=== PATIENT | male | born 1980 | race Caucasian/White ===

== ENCOUNTER 2025-05-15 14:27 | Outpatient (AMB) | payer OTHER, SELFPAY ==
[2025-05-15 14:31] VITALS: BP 137/86; PULSE 84; RESP 20; O2SAT 97; BMI 31.2
--- NOTE | 2025-05-15 14:31 | A.OFFVIS_ITS ---
Vital Signs 05/15/25 14:31 Height 6 ft Weight 230 lb BMI 31.2 BP 137/86 Blood Pressure Location Lt brachial Position Sitting Respiration 20 Pulse 84 Pulse Source Pulse Oximeter Pulse Oximetry (%) 97 Oxygen Delivery Method Room Air Intake Visit Reasons: sacroiliitis Welfare Supervisor Required: No Allergies No Known Allergies Allergy (Verified 05/15/25 14:31) HPI Comments Details: Heath is very pleasant 45 years old gentleman, precinct police lieutenant, who presents to my office with complaints of lower back pain and pain radiating into bilateral lower extremities on the posterior surface of the bilateral lower extremities and sensation of tingling and burning going down to his bilateral lower legs and top of his feet. He reports that he was under care of Dr. Demetrice Douglas. He received MRI of the lumbar spine. MRI demonstrated Modic type 1 changes in the L5-S1 area. He was physically examined and they found that the patient has sacroiliitis symptoms. He went for sacroiliac joint steroid injection on the left CT scan-guided. He denies any pain relief even though this procedure was done with 80 mg methylprednisolone injection. He reports more severe pain with standing and walking. He also reports severe pain with flexing forward and picking up subject from the ground. He also reports severe pain with heavy lifting. He is unable to sleep normally because of his pain but he can do activities of daily living, he can take care of himself, he can not function normally. He is working full-time as a precinct police lieutenant, he is on workmen's comp now. In terms of tissue damage he describes his pain as pulsing and pounding, stabbing and lancinating, pinching and crushing, hot burning and searing, tingling and stinging, dull hurting heavy, tiring and exhausting, tight squeezing and tearing sensation. He had extensive physical therapy after the injury of 04/25/2024 which did not help his pain. A chiropractor tried to help his pain as with minimal effect. Massage therapy gave him mild improvement. He tried 10s unit and received minimal effect. Injections are as above. Denies past medical history healthy individual. Past surgical history significant for left ACL repair 1997. Right knee me diskectomy 2009. Right shoulder bone spur removal in 2015. Left biceps ligament repair in 2018. And C5-C6 fusion by Dr. Valadez in 2020. He denies smoking cigarettes admits drinking 2-3 beers a week admits drinking 2 cups of coffee a day and he denies recreational drugs. Review of Systems Const All systems reviewed & are unremarkable except as noted in HPI and below ENT Reports Normal hearing present Neuro Reports Normal hearing present, Denies Abnormal speech present, Denies confusion and Denies Sensory deficit (Neuro) Psych Denies confusion Physical Exam Vital Signs: Last Vital Signs Pulse 84 05/15/25 14:31 Resp 20 05/15/25 14:31 BP 137/86 05/15/25 14:31 Pulse Ox 97 05/15/25 14:31 Oxygen Delivery Method Room Air 05/15/25 14:31 BMI result Body Mass Index 31.2 Const General: no acute distress; No confusion Orientation/consciousness: patient oriented x3 and No confusion Eyes General: appearance normal, both eyes and all related structures Pupils: Equal, round and reactive pupils present EOM: EOMs intact bilaterally Neck Neck: Yes full ROM Chest Chest palpation & inspection: normal inspection of the chest Resp Effort & Inspection: normal respiratory effort, able to speak in complete sentences, normal respiratory pattern, no audible wheezes and no cough Cardio Jugular venous distension: no JVD GI Inspection: Yes normal to inspection Back/Spine/Pelvis Other: Flexing forward aggravates his pain. Loading test is equivocal. Joe test is positive on the left, Gaenslen test is positive on the left, yeoman's test is positive on the left, SLR is negative bilaterally. Lasegue test is negative bilaterally. Able to stand on bilateral tiptoes and bilateral heels without difficulty. Neuro General: patient oriented x3, gait normal and No confusion Cranial nerves: Yes CN's II-XII intact bilaterally, Yes Equal, round and reactive pupils present, Yes Normal hearing present and Yes Ability to bilat erally elevate shoulders present Speech: No Abnormal speech present Gait exam (Neuro): Normal gait present Motor exam (neuro): 5/5 motor strength present throughout Sensory Exam: No Sensory deficit (Neuro) Extrem General: No pedal edema Psych Speech and movement: Normal speech and movement present Affect: normal affect Attitude: cooperative Thought process: Normal thought process present Thought content: Normal thought content present Insight: Good insight present (Psych) Judgement: Good judgement present (Psych) Assessment & Plan Assessment & Plan (1) Vertebrogenic low back pain: Code(s): M54.51 - Vertebrogenic low back pain Category: Medical (2) Spondylosis of lumbar region without myelopathy or radiculopathy: Code(s): M47.816 - Spondylosis without myelopathy or radiculopathy, lumbar region Category: Medical (3) Chronic pain syndrome: Code(s): G89.4 - Chronic pain syndrome Category: Medical (4) Sacroiliitis: Code(s): M46.1 - Sacroiliitis, not elsewhere classified Category: Medical (5) Chronic left sacroiliac joint pain: Code(s): M53.3 - Sacrococcygeal disorders, not elsewhere classified; G89.29 - Other chronic pain Category: Medical Plan This patient showed me MRI on his telephone which demonstrated L5-S1 facet arthropathy, disc desiccation, Modic type changes. This MRI not immediately available to me we will send the MRI report request to Dr. Douglas's office. We also will request the sacroiliac joint injection report which according to the patient did not help him at all. On physical exam patient exhibits signs of sacroiliitis on the left. However it is hard to believe that sacroiliac joint pain on the left would be radiated !! Bilaterally!! Into the both anterior shins and both feet. Possibility exists that this radiation comes from the facet joints. I offered the patient to perform diagnostic medial branch block under minimal sedation. If this injection will not result in any improvement of his painful condition I would consider performance of diagnostic sacroiliac joint injection as well as performance of the basivertebral nerve radiofrequency ablation. L5-S1. Coding Level of Care Code New Pt Level 3 (05998) Diagnoses Vertebrogenic low back pain M54.51 Spondylosis of lumbar region without myelopathy or radiculopathy M47.816 Chronic pain syndrome G89.4 Sacroiliitis M46.1 Chronic left sacroiliac joint pain M53.3; G89.29
--- OUTSIDE RECORDS SUMMARY | 2025-05-15 16:15 | XMS_ITS | Encounter Summary ---
Author Organization [facility] Address [address] [place] [address] [place] [address] Phone Care Team Providers Care Hog Sticker Name Role Phone Unknown, Unknown Primary Care Provider Adair Deng MD Primary Care Provider [phone] Encounter Details Date Type Department Care Team (Late st Contact Info) Description 01/04/2018 Ancillary Orders [facility] - [address] [address] Ciro Noonan DO [address] [place] [address] Orthopedics & Sports Medicine, [place] [address] [email or web address] Left shoulder pain, unspecified chronicity Social History Tobacco Use Types Packs/Day Years Used Date Smoking Tobacco: Never Assessed Sex and Gender Information Value Date Recorded Sex Assigned at Male 02/04/2018 6:23 PM EDT Legal Sex Male 9:22 PM EDT Gender Identity Male 02/04/2018 6:23 PM EDT Sexual Orientation Straight 02/04/2018 6: 23 PM EDT documented as of this encounter Plan of Treatment Not on file documented as of this encounter Results * XR SHOULDER 2 VIEWS (LEFT) (01/08/2018 3:23 PM EDT) Narrative Juanita Darling - 01/08/2018 3:23 PM EDT This image report has been auto-finalized and has not been read by a Radiologist. Interpretation has been included in the provider encounter note for this date of service. us Ciroandre Noonan DO IMG XR UPPER EXTREMITY Flavia l Result documented in this encounter Visit Diagnoses Diagnosis Left shoulder pain, unspecified chronicity Left shoulder pain, unspecified chronicity documented in this encounter Additional Health Concerns Infection Onset Date Last Indicated Resolved Time CoV-Risk Comment:COVID-19 test pending 12/01/2019 12/01/2019 12/15/2019 1:23 AM EDT documented as of this encounter Care Teams Hog Sticker Relationship Specialty Start Date End Date Unknown, Unknown, MD PCP - General 11/21/17 06/27/23 Adair Delgado MD [address] [place] [id number] PCP - General Internal Medicine 06/28/23 documented as of this encounter Additional Source Comments The information contained in this document represents components of the legal health record. It is not the complete legal health record.[facility]
--- OUTSIDE RECORDS SUMMARY | 2025-05-15 16:15 | XMS_ITS | Encounter Summary ---
Author Organization [facility] Address [address] [place] [address] [place] [phone] Phone Care Team Providers Care Manager Retail Store Name Role Phone Unknown, Unknown Primary Care Provider Adair Deng MD Primary Care Provider [phone] Encounter Details Date Type Department Care Team (Late st Contact Info) Description 10/11/2018 Procedure Pass OR Admitting Dept - Virtual Department [address] [place] [address] Social History Tobacco Use Types Packs/Day Years Used Date Smoking Tobacco: Never Smokeless Tobacco: Never Alcohol Use Standard Drinks/Week Comments Yes 0 (1 standard drink = 0.6 oz pur e alcohol) a couple times a month Sex and Gender Information Value Date Recorded Sex Assigned at Male 02/04/2018 6:23 PM EDT Legal Sex Male 9:22 PM EDT Gender Identity Male 02/04/2018 6:23 PM EDT Sexual Orientation Straight 02/04/2018 6: 23 PM EDT documented as of this encounter Plan of Treatment Not on file documented as of this encounter Visit Diagnoses Not on filedocumented in this encounter Additional Health Concerns Infection Onset Date Last Indicated Resolved Time CoV-Risk Comment:COVID-19 test pending 12/01/2019 12/01/2019 12/15/2019 1:23 AM EDT documented as of this encounter Care Teams Manager Retail Store Relationship Specialty Start Date End Date Unknown, Unknown, PCP - General 11/21/17 06/27/23 Adair Delgado MD [address] [place] [id number] PCP - General Internal Medicine 06/28/23 documented as of this encounter Additional Source Comments The information contained in this document represents components of the legal health record. It is not the complete legal health record.[facility]
--- OUTSIDE RECORDS SUMMARY | 2025-05-15 16:15 | XMS_ITS | Encounter Summary ---
Author Organization [facility] Address [address] [place] [address] [place] [address] Phone Care Team Providers Care Scleroscope Tester Name Role Phone Unknown, Unknown Primary Care Provider Adair Deng MD Primary Care Provider [phone] Encounter Details Date Type Department Care Team (Late st Contact Info) Description 06/27/2018 Procedure Pass [facility], [address] [address] Social History Tobacco Use Types Packs/Day Years Used Date Smoking Tobacco: Never Smokeless Tobacco: Never Alcohol Use Standard Drinks/Week Comments Yes 0 (1 standard drink = 0.6 oz pur e alcohol) Sex and Gender Information Value Date Recorded [...] documented as of this encounter Care Teams Scleroscope Tester Relationship Specialty Start Date End Date Unknown, Unknown, PCP - General 11/21/17 06/27/23 Adair Delgado MD [address] [place] [id number] PCP - General Internal Medicine 06/28/23 documented as of this encounter Additional Source Comments The information contained in this document represents components of the legal health record. It is not the complete legal health record.[facility]
--- OUTSIDE RECORDS SUMMARY | 2025-05-15 16:15 | XMS_ITS | Encounter Summary ---
Author Organization [facility] Address [address] [facility] [address] [place] [address] Phone Care Team Providers Care Pizza [employer] Team Member Name Role Phone Unknown, Unknown Primary Care Provider Adair Deng MD Primary Care Provider [phone] Encounter Details Date Type Department Care Team (Late st Contact Info) Description 06/19/2023 Procedure Pass [address] [place] [address] Social History Tobacco Use Types Packs/Day Years Used Date Smoking Tobacco: Never Smokeless Tobacco: Never Alcohol Use Standard Drinks/Week Comments Yes 0 (1 standard drink = 0.6 oz pur e alcohol) a couple times a month Education Answer Date Recorded Are you interested in more education? Not on edil e 12/23/2022 Are you concerned about learning? Not on file 12/23/2022 No 12/23/2022 No 12/23/2022 Digital Access Answer Date Recorded No 01/20/2023 No 01/20/2023 Reliable internet access at home? Not on file 01/20/2023 Device with a working camera? Not on file Sex and Gender Information Value Date Recorded Sex Assigned at Male 02/04/2018 6:23 PM EDT Legal Sex Male 9:22 PM EDT Gender Identity Male 02/04/2018 6:23 PM EDT Sexual Orientation Straight 02/04/2018 6: 23 PM EDT documented as of this encounter Plan of Treatment Not on file documented as of this encounter Visit Diagnoses Not on filedocumented in this encounter Care Teams [employer] Team Member Relationship Specialty Start Date End Date Unknown, Unknown, MD PCP - General 11/21/17 06/27/23 Adair Delgado MD [address] [place] [id number] PCP - General Internal Medicine 06/28/23 documented as of this encounter Additional Source Comments The information contained in this document represents components of the legal health record. It is not the complete legal health record.[facility]
--- OUTSIDE RECORDS SUMMARY | 2025-05-15 16:15 | XMS_ITS | Clinical Summary ---
Author Organization [facility] Address [address] [place] [address] Phone Care Team Providers Care Dental Ceramist Name Role Phone Adair Delgado MD Primary Care Provider [phone] Allergies Active Allergy Reactions Criticality Noted Date Comments Azithromycin Nausea and/or Vomiting Low 10/04/2011 Medications valACYclovir (VALTREX) 1000 MG tablet Take 2,000 mg by mouth. Cold sore 02/03/2017 Active Active Problems Problem Noted Date Diagnosed Date Left shoulder pain 01/05/2018 Family History Medical History Relation Comments No Known Problems Brother No Known Problems Father No Known Problems Maternal Aunt No Known Problems Maternal Grandfather No Known Problems Maternal Grandmother No Known Problems Maternal Uncle No Known Problems Mother No Known Problems Paternal Aunt No Known Problems Paternal Grandfather No Known Problems Paternal Grandmother No Known Problems Paternal Uncle No Known Problems Sister Cancer Unspecified Heart disease Unspecified Infl. arthritis Unspecified Clotting disorder Neg Hx Collagen disease Neg Hx Depression Neg Hx Diabetes Neg Hx Dislocations Neg Hx Gout Neg Hx Osteoporosis Neg Hx Scoliosis Neg Hx Relation Status Comments Brother Father Maternal Aunt Maternal Grandfather Maternal Grandmother Maternal Uncle Mother Paternal Aunt Paternal Grandfather Paternal Grandmother Paternal Uncle Sister Unspecified Social History Tobacco Use Types Packs/Day Years [...] Orientation Straight 02/04/2018 6: 23 PM EDT Last Filed Vital Signs Vital Sign Reading Time Taken Comments Blood Pressure 118/64 10/11/2018 1:30 PM EST Pulse 90 12/01/2019 1:57 PM EDT Temperature 36.9 C (98.4 F) 12/01/2019 1:57 PM EDT Respiratory Rate 18 10/11/2018 1:30 PM EST Oxygen Saturation 98% 12/01/2019 1:57 PM EDT Inhaled Oxygen Concentration - - Weight 102.1 kg (225 lb) 12/01/2019 1:57 PM EDT Height 182.9 cm (6') 12/01/2019 1:57 PM EDT Body Mass Index 30.52 12/01/2019 1:57 PM EDT Plan of Treatment Health Maintenance Due Date Last Done Comments DEPRESSION SCREENING 1992 HEPATITIS C SCREENING 1998 HIV ONE-TIME SCREENING (18-6 5 YEARS) 1998 LIPID PANEL 08/29/2023 08/29/2018 INFLUENZA VACCINE (#1) 2025 COLOGUARD 2025 COLONOSCOPY 2025 COLORECTAL CANCER SCREENING 2025 FIT TEST 2025 FOBT 2025 SIGMOIDOSCOPY 2025 VIRTUAL COLONOSCOPY 2025 COVID-19 VACCINE (3 2024-2 6 season) 2025 10/15/2020, 09/10/2020 Adult Td,Tdap Booster 06/10/2032 06/10/2022 , 10/04/2011 SMOKING STATUS SCREENING (On ce After 26 Yrs) Completed 07/31/2023 HEPATITIS A VACCINES Aged Out No long er eligible based on patient's age to complete this topic HIB VACCINES Aged Out No longer eligi ble based on patient's age to complete this topic MENINGOCOCCAL VACCINES (ACWY) Aged Out No longer eligible based on patient's age to complete this topic MENINGOCOCCAL VACCINES (B) Aged Out N o longer eligible based on patient's age to complete this topic PNEUMOCOCCAL VACCINES (0-49 years) Aged Out No longer eligible b ased on patient's age to complete this topic Medical Devices Implanted Type Area Animal Caregiver Device Identifier Shelf Expiration Date Model / Serial / Lot [employer]more Suture 7x19.1mm Swivelock Tenodesis [id number] - [id number] Implanted:Qty: 1 on 10/11/2018 by Ciro Noonan DO at [facility] 09/27/2019 [id number] / / [id number] Insurance O [facility] Member Subscriber Plan / Payer (Ef fective 2017-Present) Name:Heath Khan Relation to Subscriber:Self Name:HEATH KHAN Payer ID:Not on file Type:HMO Address: [place] [id number] [facility] [address] [place], [place] [address] [facility] [address] [place], [place] [address] Advance Directives For more information, please contact: [phone] (9AM - 5PM [facility], Monday-Monday) * Full Code (Presumed) (Latest Code Status on File) Date Activated Date Inactivated Comments 10/11/2018 7:40 AM 10/11/2018 3:48 PM Care Teams Dental Ceramist Relationship Specialty Start Date End Date Adair Delgado MD [address] [place] [id number] PCP - General Internal Medicine 06/28/23 Additional Source Comments The information contained in this document represents components of the legal health record. It is not the complete legal health record.[facility]
--- OUTSIDE RECORDS SUMMARY | 2025-05-15 16:15 | XMS_ITS | Encounter Summary ---
Author Organization [facility] Address [address] [place] [address] [place] [address] Phone Care Team Providers Care Laborer Mine Name Role Phone Unknown, Unknown Primary Care Provider Adair Deng MD Primary Care Provider [phone] Encounter Details Date Type Department Care Team (Late st Contact Info) Description 01/04/2018 Ancillary Orders [facility] & Sports Medicine [address] [place] [address] Ciro Noonan DO [address] [place] [address] Orthopedics & Sports Medicine, [facility] [place] [address] [email or web address] Social History Tobacco Use Types Packs/Day Years [...] documented as of this encounter Care Teams Laborer Mine Relationship Specialty Start Date End Date Unknown, Unknown, PCP - General 11/21/17 06/27/23 Adair Delgado MD [address] [place] [id number] PCP - General Internal Medicine 06/28/23 documented as of this encounter Additional Source Comments The information contained in this document represents components of the legal health record. It is not the complete legal health record.[facility]
--- OUTSIDE RECORDS SUMMARY | 2025-05-15 16:15 | XMS_ITS | Encounter Summary ---
Author Organization [facility] Address [address] [place] [address] [place] [address] Phone Care Team Providers Care Metal Sprayer Machined Parts Name Role Phone Unknown, Unknown Primary Care Provider Adair Deng MD Primary Care Provider [phone] Encounter Details Date Type Department Care Team (Late st Contact Info) Description 07/11/2018 Prep for Surgery [facility] Orthopedics & Sports Medicine [address] [place] [address] Ciro Noonan DO [address] [place] [address] Orthopedics & Sports Medicine, [facility] [place] [address] [email or web address] Social History Tobacco Use Types Packs/Day Years [...] documented as of this encounter Care Teams Metal Sprayer Machined Parts Relationship Specialty Start Date End Date Unknown, Unknown, MD PCP - General 11/21/17 06/27/23 Adair Delgado MD [address] [place] [id number] PCP - General Internal Medicine 06/28/23 documented as of this encounter Additional Source Comments The information contained in this document represents components of the legal health record. It is not the complete legal health record.[facility]
--- OUTSIDE RECORDS SUMMARY | 2025-05-15 16:15 | XMS_ITS | Clinical Summary ---
Author Organization [facility] Address [address] [place] [address] Care Team Providers Care Commercial Technician Name Role Phone Roge Delgado MD Primary Care Provider [phone] Social History Tobacco Use Types Packs/Day Years Used Date Smoking Tobacco: Never Assessed Sex and Gender Information Value Date Recorded Sex Assigned at Not on file Gender Identity Not on file Sexual Orientation Not on file Job Start Date Occupation Industry Not on file Not on file Not on file Plan of Treatment Health Maintenance Due Date Last Done Comments Hepatitis B Vaccines (1 of 3 - 3-dose series) 1980 Hepatitis C Screening 1980 COVID-19 Vaccine (#1) 1980 Depression Screening 1992 Preventative Health Evaluation 1998 DTap / Tdap / Td (2 - Td or Tdap) 10/04/2021 012 Colon Cancer Screening (Colonoscopy) 2025 Influenza Vaccine (#1) 2025 Pneumococcal Vaccine Aged Out No long er eligible based on patient's age to complete this topic RSV Ped < 20 months Aged Out No longe r eligible based on patient's age to complete this topic Care Teams Commercial Technician Relationship Specialty Start Date End Date Roge Delgado MD PCP - General Photo Journalist 06/16/21
--- OUTSIDE RECORDS SUMMARY | 2025-05-15 16:15 | XMS_ITS | Clinical Summary ---
Author Organization [facility] [address] [facility] [address] Address [address] [place] [address] Phone Care Team Providers Care Cyber Security Systems Engineer Name Role Phone Adair Delgado MD Primary Care Provider [phone] Allergies Active Allergy Reactions Criticality Noted Date Comments Azithromycin Nausea Only Low 10/04/2011 nausea Medications valACYclovir (VALTREX) 1 gram tablet Take 1 Tablet by mouth daily. - Oral Active Active Problems Problem Noted Date Diagnosed Date Family history of heart disease 02/03/2025 Sacroiliitis, not elsewhere classified (CMS/[facility] V24) 08/30/2024 Assessment & Plan (08/30/2024 3:21 PM EST): Mr. Romero describes left-sided low back pain or the feeling like something is stuck since an incident at work in March. He has had a couple of occasions of tingling in the legs but overall says that the problem is in the left side of his low back. He had some physical therapy and chiropractic treatments without relief. He has pain with palpation over the left SI joint. Gaenslen's test and SI joint compression test were both positive. Joe's maneuver was more equivocal. We will start with x-rays and an MRI of the lumbar spine. If those are not revealing, we will consider a left SI joint injection. Chronic left-sided low back pain with bilateral sciatica 08/30/2024 Assessment & Plan (01/15/2025 1:40 PM EDT): Mr. Khan describes ongoing issues with low back pain on the left-hand side. He did not get any relief with his SI joint injection. Unfortunately he now also describes bilateral pain from just below the knee traveling down the lateral aspect of the lower leg and into the dorsum of each foot. I once again reviewed his MRI of the lumbar spine. There was nothing to explain L5 distribution symptoms and his discs all have maintained height. There is very mild desiccation of the L5-S1 disc. I told him that I was stuck and did not have an explanation for his pain. Let him know that I would review his films with Dr. Wilson and see if she had any other ideas. I told him I would be in touch after discussing with Dr. Wilson. Assessment & Plan (08/30/2024 3:19 PM EST): Mr. Khan describes about 5 months of left-sided low back pain since an incident on the job in March. He has had a couple of episodes of tingling in the legs but overall says really it is a left-sided low back problem. He has been to physical therapy and had chiropractic treatment without relief. NSAIDs do not help. I am going to order some x-rays of the lumbar spine and send him for an MRI and try and understand this better. He will follow-up with us afterwards. Herpes labialis 06/06/2024 Overview (06/06/2024): Last Assessment & Plan: Valtrex 2g bid x 1 d prn outbreaks. Cervical spondylosis with radiculopathy 09/17/19 22 Overview (06/06/2024): Last Assessment & Plan: Patient is s/p C5-6 artificial disc replacement 12/24/2020, he has been noticing left upper trapezius and top anterior chest tightness, similar to what he was experiencing prior to his C5-6 disc surgery. He has been getting mild numbness in the left first webspace/dorsal hand more so than first and second digits. He states he would rate the neck pain/muscle spasm 3-6/10, at times it will be a 0/10. He had gone to [facility] in the past, called them to set up appointments when the symptoms began, has had 1 visit so far. He is not experiencing any weakness, right arm symptoms. He had EMG/NCS study 09/22/2021 that did not show carpal tunnel syndrome. I reviewed his flexion-extension C-spine x-rays done this morning, C5-6 artificial disc is intact, disk spaces above and below this level do not appear to have loss of height. No instability noted. Official report pending. I reviewed the x-rays with the patient on the computer. Mr. Khan is experiencing symptoms similar to preop, if he does not see improvement with physical therapy, he will need an updated C-spine MRI to rule out any nerve root compression. If he has any worsening symptoms, I asked him to call the office. All questions answered. I will check official report for C-spine x-rays when available. Snoring 11/09/2019 Overview (06/06/2024): 09/2019 Home Sleep Study did not reveal sleep apnea or nocturnal hypoxia. Hypercholesteremia 10/22/2018 Chest pain 09/17/2018 Left shoulder pain 01/05/2018 Encounters Date Type Department Care Team Description 04/16/2025 [facility] [address] [id number] Merari Nieto MA 03/28/2025 [facility] [address] [id number] Merari Nieto MA 03/28/2025 [facility] [address] [phone] Merari Nieto MA from Last 3 Months Immunizations Name Administration Dates Next Due Moderna SARS-CoV-2 COVID-19, mRNA, LNP-S, preservative free 10/08/2020,09/10/2020 Td Tetanus diptheria (Tdvax) 7yo and older 06/10 Tdap Tetanus diptheria acell ular pertussis (Boostrix; Adacel) 7yo and older 10/04/2011 Surgical History Surgery Date Site/Laterality Comments KNEE SURGERY 1997 PROCEDURE: HISTORICAL KNEE SURGERY; COMMENT: Left ACL '98 Cristian David KNEE SURGERY 2012 PROCEDURE: HISTORICAL KNEE SURGERY; COMMENT: right meniscus repair SHOULDER SURGERY 07/2015 Right PROCEDURE: IN UNLISTED PROCEDURE SHOULDER; COMMENT: NEOS KNEE SURGERY 2010 Left PROCEDURE: HISTORICAL KNEE SURGERY; COMMENT: Meniscus SHOULDER SURGERY 2018 PROCEDURE: HISTORICAL SHOULDER SURGERY; COMMENT: left labral and biceps tendon NECK SURGERY 12/24/2020 PROCEDURE: HISTORICAL NECK SURGERY; COMMENT: C5-6 discectomy and artificial disc replacement, Dr. Wilson SPINE SURGERY 2020 VASECTOMY 2007 Medical History Medical History Date Comments Herpes labialis DX:Herpes labial is Osteoarthrosis, unspecified whether generalized or localized, lower leg DX:Osteoarthrosis, unspecified whether generalized or localized, lower leg; COMMENT: knee, right Torn ACL 2007 DX:Torn ACL; COM MENT: on the R, no surgery Hypercholesteremia 10/22/2018 DX:Hyperchole steremia Family History Medical History Relation Name Comments Breast cancer Aunt 3 materal aunt s over age 45 No Known Problems Daughter Early Father Dad Other: scd Father Dad Arthritis Maternal Grandmother Grandma D Breast cancer Maternal Grandmother Grandma D Hypertension Mother Mom Arthritis Mother's Sister 1 Rachele Cancer Mother's Sister 2 Darcei Cancer Mother's Sister 3 Mita Cancer Mother's Sister 4 Krystin Dementia Paternal Grandfather Grampa S Heart attack Paternal Grandfather Grampa S alive a t 90 Heart disease Paternal Grandfather Grampa S Dementia Paternal Grandmother Grandma S Other cancer Paternal Grandmother Grandma S skin Arthritis Sister Christine No Known Problems Son Relation Name Status Comments Aunt Daughter Alive Father Dad (Age 61) healthy, u nknown cause of . in sleep Maternal Grandfather Alive healthy Maternal Grandmother Grandma D breast ca Mother Mom Alive healthy Mother's Sister 1 Rachele Mother's Sister 2 Darcie Mother's Sister 3 Mita Mother's Sister 4 Krystin Paternal Grandfather Grampa S Alive heart d isease, quad bypass Paternal Grandmother Grandma S Alive breast lump removed Sister Christine Alive healthy Son Alive Social History Tobacco Use Types Packs/Day Years Used Date Smoking Tobacco: Never Smokeless Tobacco: Never Tobacco Cessation:Counseling Given: Not Answered Alcohol Use Standard Drinks/Week Comments Yes 3 (1 standard drink = 0.6 oz pur e alcohol) Housing Instability Answer Date Recorde d Are you worried that in the next 2 months you may not have stable housing? No 07/18/2024 Food Access & Nutrition Answer Date Rec orded Do you have access to a vari ety of food including fruits and vegetables? Yes 07/18/2024 Access to Healthcare Answer Date Record ed Within the last 3 months, ho w many times did you visit the emergency department for your medical care? 1 07/18/2024 Health Literacy Answer Date Recorded How often do you need to hav e someone help you when you read instructions, pamphlets, or other written material from your doctor or pharmacy? Never 07/18/2024 Caregiver: How often do you need to have someone help you when you read instructions, pamphlets, or other written material from your doctor or pharmacy? Not on file 07/18/2024 Financial Risk Answer Date Recorded How hard is it for you to pa y for the very basics like food, housing, medical care, and air conditioning / heating? Not very hard 07/18/2024 Transportation Answer Date Recorded Has the lack of transportati on kept you from meetings, work, or from getting things needed for daily living? No Has the lack of transportati on kept you from medical appointments or from getting medications? No 07/18/2024 Social Isolation Answer Date Recorded How often do you feel lonely or isolated from th ose around you? Never 07/18/2024 Food Risk Answer Date Recorded Within the past 12 months we worried whether our food would run out before we got money to buy more. Never true 07/18/2024 Within the past 12 months th e food we bought just didn't last and we didn't have money to get more. Never true 07/18/2024 Dependent Care Answer Date Recorded Do you need help finding or paying for care for your loved ones. For example, child nutrition manager or elderly care for an older adult? No 07/18/2024 Education Answer Date Recorded Do you think completing more education or training, like finishing a GED, going to college, or learning a trade, would be helpful for you? No 07/18/2024 Employment and Income Answer Date Recor ded During the last four weeks, have you been actively looking for work? No 07/18/2024 Living Situation Answer Date Recorded What is your living situation? 1 09/17/2023 Sex and Gender Information Value Date Recorded Sex Assigned at Male 08/30/2024 3:23 PM EST Legal Sex Male 5:50 AM EST Gender Identity Male 08/30/2024 3:23 PM EST Sexual Orientation Straight 08/30/2024 3: 23 PM EST Obstetrics History Last Filed Vital Signs Vital Sign Reading Time Taken Comments Blood Pressure 132/84 02/03/2025 3:34 PM EDT Pulse 66 02/03/2025 3:34 PM EDT Temperature 36.7 C (98.1 F) 07/18/2024 3:38 PM EST Respiratory Rate - - Oxygen Saturation - - Inhaled Oxygen Concentration - - Weight 106 kg (233 lb 9.6 oz) 02/03/2025 3:34 PM EDT Height 182.9 cm (6') 02/03/2025 3:34 PM EDT Body Mass Index 31.68 02/03/2025 3:34 PM EDT Plan of Treatment Upcoming Encounters Date Type Department Care Team (Late st Contact Info) Description 06/25/2025 1:00 PM EDT Office Visit [facility] [address] [facility] [address] [place] [phone] Vicki Marks MD [address] [place] [address] [place] [address] Health Maintenance Due Date Last Done Comments Colorectal Cancer Screening: Colonoscopy 08/06/2022 Social Influencers of Health Screening 07/18/2025 07/18/2024 Cholesterol Screening (Lipid Panel) 01/22/2030 01/22/2025, 08/23/2024, 08/29/2018 DTaP,Tdap,and Td Vaccines (3 - Td or Tdap) 06/10/2032 06/10/2022, 10/04/2011 RSV Immunization Adult Patients (1 - 1-dose 75+ series) 2055 COVID-19 Vaccine Discontinued 10/08/2020, 09/10/2020 Hepatitis C Screening Completed 08/23/2024 Depression Screening Completed 02/02/2025 HIB Vaccines Aged Out No longer eligi ble based on patient's age to complete this topic HIV Screening Discontinued HPV Vaccines Aged Out No longer eligi ble based on patient's age to complete this topic Hepatitis A Vaccines Aged Out No long er eligible based on patient's age to complete this topic Hepatitis B Vaccines Discontinued IPV Vaccines Aged Out No longer eligi ble based on patient's age to complete this topic Influenza Vaccine Discontinued MMR Vaccines Aged Out No longer eligi ble based on patient's age to complete this topic Meningococcal ACWY Vaccine Aged Out N o longer eligible based on patient's age to complete this topic Meningococcal B Vaccine Aged Out No l onger eligible based on patient's age to complete this topic Pneumococcal Vaccine: Pediatrics (0 to 5 Years) and At-Risk Patients (6 to 49 Years) Aged Out No longer eligible based on patient's age to complete this topic RSV Immunization Patients Under 20 months Aged Out No longer eligible based on patient's age to complete this topic Varicella Vaccines Aged Out No longer eligible based on patient's age to complete this topic Procedures Procedure Name Priority Date/Time Associated Diagnosis Comments LIPID PANEL WITH REFLEX TO DIRECT LDL Routine 01/22/2025 8:56 AM EDT Hypercholesterolemi a HEPATITIS C ANTIBODY Routine 08/23/2024 9:01 AM EST Need for hepatitis C screening test from Last 3 Months or Most Recently Relevant to Health Maintenance Results * (ABNORMAL) Lipid panel with reflex to direct LDL (01/22/2025 8:56 AM EDT) Cholesterol 253(H) 0 - 200 mg/dL LAB CHEMISTRY METHOD 01/22/2025 2:13 PM EDT [facility] Triglycerides 252(H) 0 - 150 mg/dL LAB CHEMISTRY METHOD 01/22/2025 2:13 PM EDT [facility] HDL 46 >=40 mg/dL LAB CHEMISTRY METHOD 01/22/2025 2:13 PM EDT [facility] LDL Calculated 157(H) 0 - 100 mg/dL LAB CHEMISTRY METHOD 01/22/2025 2:13 PM EDT [facility] VLDL Cholesterol Felipe 50.4 mg/dL LAB CHEMISTRY METHOD 01/22/2025 2:13 PM EDT [facility] Non HDL Chol. (LDL+VLDL) 207(H) <145 mg/dL LAB CHEMISTRY METHOD 01/22/2025 2:13 PM EDT [facility] Chol/HDL Ratio 5.5(H) 0.0 - 4.4 LAB CHEMISTRY METHOD 01/22/2025 2:13 PM EDT [facility] Blood Venous blood specimen / Unknown Venipuncture / Unknown 01/22/2025 8:56 AM EDT 01/22/2025 8:56 AM EDT Adair Delgado MD LAB BLOOD ORDERABLES Final Res ult Performing Organization Address [facility]/ZIP Co de Phone Number [facility] [address] [place] [address], [place] [phone] * Hepatitis C antibody (08/23/2024 9:01 AM EST) Hepatitis C Antibody Negative Negative LAB CHEMISTRY METHOD 08/23/2024 1:05 PM EST [facility] Blood Venous blood specimen / Unknown Venipuncture / Unknown 08/23/2024 9:01 AM EST 08/23/2024 9:01 AM EST Donald HUERTA LAB BLOOD ORDERABLES Final Res ult [facility] [address] [place] [address], [place] [phone] from Last 3 Months or Most Recently Relevant to Health Maintenance Insurance [facility] [address] [place] [address] GENERIC Care Teams Cyber Security Systems Engineer Relationship Specialty Start Date End Date Adair Delgado MD [address] [place] [id number] PCP - General Internal Medicine 05/20/21
== END 2025-05-15 14:52 | disposition home or self-care (01) ==
LOC: HO.PMC 14:27
PROVIDERS: PCP Pediatrics; Visit Provider Anesthesiology
DX: M54.51 Vertebrogenic low back pain (principal); M47.816 Spondylosis without myelopathy or radiculopathy, lumbar region; G89.4 Chronic pain syndrome; M46.1 Sacroiliitis, not elsewhere classified; M53.3 Sacrococcygeal disorders, not elsewhere classified; G89.29 Other chronic pain
CPT/HCPCS: 99203

== ENCOUNTER → 2025-05-15 14:27 | Outpatient (BNVA) | payer OTHER, SELFPAY | PROVIDERS: PCP Pediatrics; Visit Provider Anesthesiology | DX: M46.1 Sacroiliitis, not elsewhere classified (principal); M53.3 Sacrococcygeal disorders, not elsewhere classified; G89.29 Other chronic pain; M54.51 Vertebrogenic low back pain; M47.816 Spondylosis without myelopathy or radiculopathy, lumbar region | CPT/HCPCS: 99202 ==

== ENCOUNTER 2025-06-20 05:53 | Day surgery (SDC) | payer OTHER, SELFPAY ==
--- OUTSIDE RECORDS SUMMARY | 2025-06-02 15:59 | XMS_ITS | Encounter Summary ---
Author Organization [facility] Address [address] [place] [address] [place] [address] Phone Care Team Providers Care Gre Instructor Name Role Phone Unknown, Unknown Primary Care Provider Adair Deng MD Primary Care Provider [phone] Encounter Details Date Type Department Care Team (Late st Contact Info) Description 06/27/2018 Procedure Pass [facility], [address] [address] Social History Tobacco Use Types Packs/Day Years [...] documented as of this encounter Care Teams Gre Instructor Relationship Specialty Start Date End Date Unknown, Unknown, PCP - General 11/21/17 06/27/23 Adair Delgado MD [address] [place] [id number] PCP - General Internal Medicine 06/28/23 documented as of this encounter Additional Source Comments The information contained in this document represents components of the legal health record. It is not the complete legal health record.[facility]
--- OUTSIDE RECORDS SUMMARY | 2025-06-02 15:59 | XMS_ITS | Clinical Summary ---
Author Organization [facility] Address [address] [place] [address] Phone Care Team Providers Care Cosmetics Supervisor Name Role Phone Adair Delgado MD Primary Care Provider [phone] Allergies Active Allergy Reactions Criticality Noted Date [...] this topic Medical Devices Implanted Type Area Wire Bender Hand Device Identifier Shelf Expiration Date Model / Serial / Lot [place] Suture 7x19.1mm Swivelock Tenodesis Bx/5ea - [id number] Implanted:Qty: 1 on 10/11/2018 by Ciro Noonan DO at [facility] 09/27/2019 [id number] / / [id number] Insurance [facility] Member Subscriber Plan / Payer (Ef fective 2017-Present) Name:Heath Khan Relation to Subscriber:Self Name:HEATH KHAN Payer ID:Not on file Type:HMO Address: [place] [id number] [facility] [address] [place], [place] [id number] [facility] [address] [place], [place] [phone] Advance Directives For more information, please contact: [phone] (9AM - 5PM [facility], Monday-Monday) * Full Code (Presumed) (Latest Code Status on File) Date Activated Date Inactivated Comments 10/11/2018 7:40 AM 10/11/2018 3:48 PM Care Teams Cosmetics Supervisor Relationship Specialty Start Date End Date Adair Delgado MD [address] [place] [address] PCP - General Internal Medicine 06/28/23 Additional Source Comments The information contained in this document represents components of the legal health record. It is not the complete legal health record.[facility]
--- OUTSIDE RECORDS SUMMARY | 2025-06-02 15:59 | XMS_ITS | Encounter Summary ---
Author Organization [facility] Address [address] [place] [address] [place] [phone] Phone Care Team Providers Care Operation Agent Name Role Phone Unknown, Unknown Primary Care Provider Adair Deng MD Primary Care Provider [phone] Encounter Details Date Type Department Care Team (Late st Contact Info) Description 10/11/2018 Procedure Pass [place] Admitting Dept - Virtual Department [address] [place] [address] Social History Tobacco Use Types Packs/Day Years [...] documented as of this encounter Care Teams Operation Agent Relationship Specialty Start Date End Date Unknown, Unknown, PCP - General 11/21/17 06/27/23 Adair Delgado MD [address] [place] [id number] PCP - General Internal Medicine 06/28/23 documented as of this encounter Additional Source Comments The information contained in this document represents components of the legal health record. It is not the complete legal health record.[facility]
--- OUTSIDE RECORDS SUMMARY | 2025-06-02 15:59 | XMS_ITS | Encounter Summary ---
Author Organization [facility] Address [address] [place] [address] [place] [address] Phone Care Team Providers Care Mail Deliverer Name Role Phone Unknown, Unknown Primary Care Provider Adair Deng MD Primary Care Provider [phone] Encounter Details Date Type Department Care Team (Late st Contact Info) Description 01/04/2018 Ancillary Orders [facility] [place] - [address] [address] Ciro Noonan DO [address] [place] [address] Orthopedics & Sports Medicine, [place] [address] [email or web address] Left shoulder pain, unspecified chronicity Social History [...] documented as of this encounter Care Teams Mail Deliverer Relationship Specialty Start Date End Date Unknown, Unknown, MD PCP - General 11/21/17 06/27/23 Adair Delgado MD [address] [place] [id number] PCP - General Internal Medicine 06/28/23 documented as of this encounter Additional Source Comments The information contained in this document represents components of the legal health record. It is not the complete legal health record.[facility]
--- OUTSIDE RECORDS SUMMARY | 2025-06-02 15:59 | XMS_ITS | Clinical Summary ---
Author Organization [facility] Address [address] [place] [address] Care Team Providers Care Senior Interactive Developer Name Role Phone Roge Delgado MD Primary Care Provider [phone] Social History Tobacco Use Types Packs/Day Years [...] age to complete this topic Care Teams Senior Interactive Developer Relationship Specialty Start Date End Date Roge Delgado MD PCP - General Pipe And Tank Fabricator 06/16/21
--- OUTSIDE RECORDS SUMMARY | 2025-06-02 15:59 | XMS_ITS | Encounter Summary ---
Author Organization [facility] Address [address] [facility] [address] [place] [address] Phone Care Team Providers Care Barrel Racer Name Role Phone Unknown, Unknown Primary Care Provider Adair Deng MD Primary Care Provider [phone] Encounter Details Date Type Department Care Team (Late st Contact Info) Description 06/19/2023 Procedure Pass [address] [place] [address] Social History Tobacco Use Types Packs/Day Years [...] on filedocumented in this encounter Care Teams Barrel Racer Relationship Specialty Start Date End Date Unknown, Unknown, MD PCP - General 11/21/17 06/27/23 Adair Delgado MD [address] [place] [address] PCP - General Internal Medicine 06/28/23 documented as of this encounter Additional Source Comments The information contained in this document represents components of the legal health record. It is not the complete legal health record.[facility]
--- OUTSIDE RECORDS SUMMARY | 2025-06-02 15:59 | XMS_ITS | Encounter Summary ---
Author Organization [facility] Address [address] [place] [address] [place] [address] Phone Care Team Providers Care Bowling Ball Assembler Name Role Phone Unknown, Unknown Primary Care Provider Adair Deng MD Primary Care Provider [phone] Encounter Details Date Type Department Care Team (Late st Contact Info) Description 01/04/2018 Ancillary Orders [facility] [address] [place] [address] Ciro Noonan DO [address] [place] [address] Orthopedics & Sports Medicine, [facility] [place] [address] [email or web address] Social History Tobacco Use Types Packs/Day Years [...] documented as of this encounter Care Teams Bowling Ball Assembler Relationship Specialty Start Date End Date Unknown, Unknown, PCP - General 11/21/17 06/27/23 Adair Delgado MD [address] [place] [id number] PCP - General Internal Medicine 06/28/23 documented as of this encounter Additional Source Comments The information contained in this document represents components of the legal health record. It is not the complete legal health record.[facility]
--- OUTSIDE RECORDS SUMMARY | 2025-06-02 15:59 | XMS_ITS | Encounter Summary ---
Author Organization [facility] Address [address] [place] [address] [place] [address] Phone Care Team Providers Care Personal Lines Insurance Agent Name Role Phone Unknown, Unknown Primary Care Provider Adair Deng MD Primary Care Provider [phone] Encounter Details Date Type Department Care Team (Late st Contact Info) Description 07/11/2018 Prep for Surgery [facility] Medicine [address] [place] [address] Ciro Noonan DO [address] [place] [address] Orthopedics & Sports Medicine, [place] [address] [email or web address] Social History Tobacco Use Types Packs/Day Years [...] documented as of this encounter Care Teams Personal Lines Insurance Agent Relationship Specialty Start Date End Date Unknown, Unknown, MD PCP - General 11/21/17 06/27/23 Adair Delgado MD [address] [place] [id number] PCP - General Internal Medicine 06/28/23 documented as of this encounter Additional Source Comments The information contained in this document represents components of the legal health record. It is not the complete legal health record.[facility]
--- OUTSIDE RECORDS SUMMARY | 2025-06-02 15:59 | XMS_ITS | Clinical Summary ---
Author Organization [facility] [address] Address [address] [place] [address] Phone Care Team Providers Care Landscape Painter Name Role Phone Adair Delgado MD Primary Care Provider [phone] Allergies Active Allergy Reactions Criticality Noted Date Comments Azithromycin Nausea Only Low 10/04/2011 nausea Medications valACYclovir (VALTREX) 1 gram tablet Take 1 Tablet by mouth daily. - Oral Active Active Problems Problem Noted Date Diagnosed Date Family history of heart disease 02/03/2025 Sacroiliitis, not elsewhere classified (CMS/[facility] V24) 08/30/2024 Assessment & Plan (08/30/2024 3:21 [...] be a 0/10. He had gone to [facility] in the past, called them [...] Date Type Department Care Team Description 04/16/2025 [facility] [address] [phone] Merari Nieto MA 03/28/2025 [facility] [address] [phone] Merari Nieto MA 03/28/2025 [facility] [address] [phone] Merari Nieto MA from Last 3 Months Immunizations Immunization Administration Dates Next Due Moderna SARS-CoV-2 COVID-19, [...] meniscus repair SHOULDER SURGERY 07/2015 Right PROCEDURE: [place] UNLISTED PROCEDURE SHOULDER; COMMENT: NEOS KNEE SURGERY [...] Sister 1 Rachele Cancer Mother's Sister 2 Darcie Cancer Mother's Sister 3 Mita Cancer Mother's [...] for your loved ones. For example, child day care teacher or elderly care for an older adult? [...] Date Recorded What is your living situation? Unrecognized valu e 07/18/2024 Sex and Gender Information Value Date Recorded [...] Description 06/25/2025 1:00 PM EDT Office Visit [facility] [address] [phone] Vicki Marks MD [address] [place] [address] Health Maintenance Due Date Last Done Comments Colorectal Cancer Screening: Colonoscopy 1980 HPV Vaccines (1 - 3-dose SCD M series) 2007 Social Influencers of Health Screening 07/18/2025 07/18/2024 [...] to complete this topic HIV Screening Discontinued Hepatitis A Vaccines Aged Out No long [...] LAB CHEMISTRY METHOD 01/22/2025 2:[address] [facility] Triglycerides 252(H) 0 - 150 mg/dL LAB CHEMISTRY METHOD 01/22/2025 2:[address] [facility] HDL 46 >=40 mg/dL LAB CHEMISTRY METHOD 01/22/2025 2:[address] [facility] LDL Calculated 157(H) 0 - 100 mg/dL LAB CHEMISTRY METHOD 01/22/2025 2:[address] [facility] VLDL Cholesterol Felipe 50.4 mg/dL LAB CHEMISTRY METHOD 01/22/2025 2:[address] [facility] Non HDL Chol. (LDL+VLDL) 207(H) <145 mg/dL LAB CHEMISTRY METHOD 01/22/2025 2:[address] [facility] Chol/HDL Ratio 5.5(H) 0.0 - 4.4 LAB CHEMISTRY METHOD 01/22/2025 2:[address] [facility] Blood Venous blood specimen / Unknown Venipuncture / Unknown 01/22/2025 8:56 AM EDT 01/22/2025 8:56 AM EDT Adair Delgado MD LAB BLOOD ORDERABLES Final Res ult Performing Organization Address [facility]/ZIP Co de Phone Number [facility] [address] [place] [address], [place] [phone] * Hepatitis C antibody (08/23/2024 9:01 AM EST) Hepatitis C Antibody Negative Negative LAB CHEMISTRY METHOD 08/23/2024 1:[address] [facility] Blood Venous blood specimen / Unknown Venipuncture / Unknown 08/23/2024 9:01 AM EST 08/23/2024 9:01 AM EST Donald HUERTA LAB BLOOD ORDERABLES Final Res ult Performing Organization Address [facility]/ZIP Co de Phone Number [facility] [address] [place] [address], [place] [phone] from Last 3 Months or Most Recently Relevant to Health Maintenance Insurance [facility] Care Teams Landscape Painter Relationship Specialty Start Date End Date Adair Delgado MD [address] [place] [id number] PCP - General Internal Medicine 05/20/21
[2025-06-04 13:29] VITALS: BMI 31.7
--- NOTE | 2025-06-18 11:19 | HO.ANESPROP2 ---
Documented by User: Keyana Munoz NP 06/18/25 11:19 HPI - Anesthesia Eval Consult details Narrative: 45yo M for Bilateral Diagnostic L3-L4 Dorsal Ramus L5 Medial Branch Block PMFSH Active Problems Active Problems: All Active Problems Chronic left sacroiliac joint pain (Acute) Sacroiliitis (Acute) Chronic pain syndrome (Acute) Spondylosis of lumbar region without myelopathy or radiculopathy (Acute) Vertebrogenic low back pain (Acute) Past Medical History Medical History Family history of heart disease Habitual snoring Cervical spondylosis with radiculopathy Hypercholesteremia Back pain Social History Social History Patient Tobacco Use Status: Never used Tobacco Use of substances other than those prescribed or required for medical reasons: No Are you DNR?: No Advance Directives: No Advance Directives Information Provided: Yes Meds Allergies Allergy/AdvReac Type Severity Reaction Status Date / Time azithromycin Allergy Nausea Verified 06/04/25 13:25 Home Medications ?Medication ?Instructions ?Recorded ?Confirmed ?Last Taken ?Type valacyclovir 1 gram tablet 1,000 mg PO DAILY 05/15/25 06/04/25 Unknown History Exam Height,Weight and Vital Signs: Height 6 ft Weight 106 kg Assessment and Plan Assessment Anesthesia Assessment: Chart Reviewed Documented by User: Kaylin Baron MD 06/20/25 08:04 PMFSH Past Medical History Medical History Family history of heart disease Habitual snoring Cervical spondylosis with radiculopathy Hypercholesteremia Back pain Family History Family history of problems with anesthesia: No Surgical History History of Problems with Anesthesia: No Social History Social History Patient Tobacco Use Status: Never used Tobacco Use of substances other than those prescribed or required for medical reasons: No Are you DNR?: No Advance Directives: No Advance Directives Information Provided: Yes Meds Allergies Allergy/AdvReac Type Severity Reaction Status Date / Time azithromycin Allergy Nausea Verified 06/04/25 13:25 Home Medications ?Medication ?Instructions ?Recorded ?Confirmed ?Last Taken ?Type valacyclovir 1 gram tablet 1,000 mg PO DAILY 05/15/25 06/04/25 Unknown History Exam Airway Mallampati Class: II TM Dist: >3cm Neck ROM: Full Heart: rrr Lungs: cta Assessment and Plan Assessment Anesthesia Assessment: Anesthesia Plan Discussed Final Anesthetic Review Family History of Problems with Anesthesia: No History of Problems with Anesthesia: No NPO: Yes ASA Class: II Final Preanesthetic Review: No Changes in Pt Med Stat, Meds/Allgs Chart Reviewed, Consent Obtained/Reviewed and Anes Risks/Benef Reviewed Patient Risk: Low Procedure Risk: Low Anesthetic Plan Anesthetic Plan: MAC: and Agree w/ Assess. and Plan Disposition: Standard PACU
--- NOTE | ~2025-06-20 | FL_ITS ---
EXAMINATION: FLUOROSCOPY GUIDANCE FOR NEEDLE PLACEMENT CLINICAL INFORMATION: dx l3 l4 dr l4 mbb, bilateral COMPARISON: None available. TECHNIQUE: Roski guidance provided for pain management procedure. FINDINGS: Images demonstrate needle placement and contrast injection adjacent to the bilateral L3, L4 and L5 vertebral bodies. FLUOROSCOPY TIME: 37 seconds DOSE: 4 saved fluoroscopic images. 5.7 g/sq cm FL/FL guidance in OR IMPRESSION: Fluoroscopy guidance for pain management procedure. Electronically signed by: Jaky Urrutia MD 06/20/2025 08:13 AM EDT
[2025-06-20 06:05] VITALS: BMI 31.8
[2025-06-20 06:18] VITALS: BP 108/61; PULSE 84; RESP 16; TEMP 37; O2SAT 99
[2025-06-20] MEDS: Lactated Ringers 1,000 ML 100 ML IVCONT (06:19)
--- NOTE | 2025-06-20 07:08 | MHC.SHP ---
Pre-Procedural Eval Section A - 24 Hr Update-Section A only Date of Service: 06/20/25 The patient is an INPATIENT: No Changes since office visit: Yes Patient answered all questions The patient has been examined within 24 hours of the surgical procedure. The History & Physical has been completed within 30 days and I have reviewed it.: No Section B - Complete if H&P > 30 days Chief Complaint: Spondylosis w/o myelopathy or radiculopathy,pain Details of Present Illness: As above Relevant Family History (Specify if Yes): No Relevant Social History: Other (specify) (History of heavy lifting) Present Medications: see Short Stay Collaborative assessment Medical History: No relevant PMH History of Previous Operations: No relevant previous surgery Allergies: Allergies Allergy/AdvReac Type Severity Reaction Status Date / Time azithromycin Allergy Nausea Verified 06/04/25 13:25 Review of Systems Sugical H&P ROS: Negative: Constitution, Cardiovascular, Respiratory, Neurological, Psychiatric, Hem-Onc, Allergic/Immunologic, Gastrointestinal, Genitourinary, Integumentary, Endocrine and Eyes/Ears/Nose/Throat and Yes, Specify: Musculoskeletal (Spondylosis lumbar without myelopathy or radiculopathy) Exam Surgical H&P Exam: Normal: HEENT, Normal: Heart, Normal: Lungs, Normal: Extremities, Normal: Abdomen, Normal: Skin and Normal: Neurological Plan Diagnosis/Plan: Unchanged I have reviewed the history and physical and performed a pertinent physical examination on my patient. No changes have occurred unless specified. I am planning to perform bilateral medial branch block L3, L4, dorsal ramus L5 diagnostic. Time Spent With Patient Time: Total time managing care of this patient today __5__ minutes.
[2025-06-20 08:00] VITALS: BP 101/59; PULSE 89; RESP 16; TEMP 36.5; O2SAT 98
--- NOTE | 2025-06-20 08:04 | W.PM.OPN ---
Operative Note Operative Note Date of Service: 06/20/25 Narrative: Diagnostic medial branch block L3,L4 dorsal ramus L5 bilateral.? ? ?Informed consent was explained to the patient. All questions were explained and? answered.? The patient was taken inside the operating room where he was positioned prone on the operating table. ASA monitors were applied and patient was moderately sedated Time-out was performed delineating correct site, side, the nature of the procedure, patient's allergy, . All operating room staff was participating in OR time-out procedure. ? ? The lower back was prepped with ChloraPrep and draped with sterile utility towels.? C-arm was brought over the operating field and sq picture of L4-, L5 vertebra and S1 AREA were delineated on the screen.? Point of interest were delineated as confluence of superior articular process of L4 and L5 vertebra bilaterally with corresponding transverse processes as well as confluence of the sacral alae bilaterally with superior articular process of S1.? The projection of the point of interest to the skin were injected with the small amount of local anesthetic lidocaine 2% mixed with ropivacaine 0.5% 1-1 approximately 1 cc.? After that 22 gauge 3.5 inch spinal needle was driven sequentially to the points of interest in tunnel vision fashion. After needles gently contacted the bone at the point of interests the needle was injected with small amount of the contrast.? The injection of the contrast did not demonstrate any intravascular or intrathecal spread of the contrast.? After that injection of the? ropivacaine 0.5%-1cc was performed at each needle location.?After that the needles were removed and Bandaids were applied.
--- NOTE | 2025-06-20 08:09 | P.BOP_ITS ---
Brief Operative Note Date of Service: 06/20/25 Pre-op diagnosis: Spondylosis lumbar without myelopathy or radiculopathy Post-op diagnosis: same Procedure: Diagnostic medial branch block L3-L4 dorsal ramus L5 bilateral Implants: None Surgeon: Hayder Polo MD Anesthesia: MAC Was an Ocean Rescue Lieutenant used for this Procedure?: No Estimated blood loss (mL): 0 Condition: stable Disposition: PACU
[2025-06-20 08:15] VITALS: BP 109/64; PULSE 73; RESP 16; TEMP 36.6; O2SAT 97
== END 2025-06-20 08:38 | disposition home or self-care (01) ==
PROVIDERS: PCP Pediatrics; Visit Provider Anesthesiology
PROC: (CPT 64493; principal; 2025-06-20 07:30)
DX: M47.816 Spondylosis without myelopathy or radiculopathy, lumbar region (principal); G89.4 Chronic pain syndrome; M54.51 Vertebrogenic low back pain; M46.1 Sacroiliitis, not elsewhere classified; R20.0 Anesthesia of skin; R20.2 Paresthesia of skin; R26.2 Difficulty in walking, not elsewhere classified; M53.3 Sacrococcygeal disorders, not elsewhere classified; Z79.899 Other long term (current) drug therapy; Z88.1 Allergy status to other antibiotic agents
CPT/HCPCS: 64493; 64494; 64495; J2003; J2250; J2704; J2795; Q9967

== ENCOUNTER → 2025-06-20 05:53 | Outpatient (BNV) | payer OTHER, SELFPAY | PROVIDERS: PCP Pediatrics; Visit Provider Anesthesiology | DX: M47.816 Spondylosis without myelopathy or radiculopathy, lumbar region (principal) | CPT/HCPCS: 64493; 64494 ==

== ENCOUNTER 2025-06-25 10:05 | Outpatient (AMB) | payer OTHER, SELFPAY ==
--- NOTE | 2025-06-25 10:08 | MHC.OFFVIS ---
Vital Signs 06/25/25 10:09 Height 6 ft Weight 234 lb BMI 31.7 BP 144/83 H Blood Pressure Location Rt brachial Position Sitting Respiration 16 Pulse 70 Pulse Source Pulse Oximeter Pulse Oximetry (%) 99 Oxygen Delivery Method Room Air Intake Visit Reasons: S/p B/l Dx L3-L4-DRL5 MBB 06/06/25 Telegraph And Teletype Operator Required: No Accompanied by: Self / Same As Patient Allergies azithromycin Allergy (Verified 06/25/25 10:09) Nausea HPI Comments Details: Heath is back in my office after diagnostic medial branch block which was performed under minimal sedation. He reports less than 50% pain improvement for the 1st 2 hours after the procedure which could be explained by systemic action of local anesthetic. Therefore the joints in the lower back is not his pain generators. He had therapeutic sacroiliac joint injection in the past under CT guidance however the images are not available for me and I can not make a conclusion how accurate the placement of the needle was. I will schedule him for diagnostic left sacroiliac joint injection. If this will not help the pain of the patient I would need to evaluate lumbar spine MRI of this patient. See as below. Prior: Complains on lower back pain and pain radiating into bilateral lower extremities on the posterior surface of the bilateral lower extremities and sensation of tingling and burning going down to his bilateral lower legs and top of his feet. He reports that he was under care of Dr. Demetrice Douglas. He received MRI of the lumbar spine. MRI demonstrated Modic type 1 changes in the L5-S1 area. He was physically examined and they found that the patient has sacroiliitis symptoms. He went for sacroiliac joint steroid injection on the left CT scan-guided. He denies any pain relief even though this procedure was done with 80 mg methylprednisolone injection. He reports more severe pain with standing and walking. He also reports severe pain with flexing forward and picking up subject from the ground. He also reports severe pain with heavy lifting. He had extensive physical therapy after the injury of 04/25/2024 which did not help his pain. A chiropractor tried to help his pain as with minimal effect. Massage therapy gave him mild improvement. He tried 10s unit and received minimal effect. Injections are as above. Denies past medical history healthy individual. Past surgical history significant for left ACL repair 1997. Right knee me diskectomy 2009. Right shoulder bone spur removal in 2015. Left biceps ligament repair in 2017. And C5-C6 fusion by Dr. Valadez in 2020. He denies smoking cigarettes admits drinking 2-3 beers a week admits drinking 2 cups of coffee a day and he denies recreational drugs. [facility] Medical History Family history of heart disease Habitual snoring Cervical spondylosis with radiculopathy Hypercholesteremia Back pain Social History Patient Tobacco Use Status: Never used Tobacco Review of Systems Const All systems reviewed & are unremarkable except as noted in HPI and below ENT Reports Normal hearing present Neuro Reports Normal hearing present, Denies Abnormal speech present, Denies confusion and Denies Sensory deficit (Neuro) Psych Denies confusion Physical Exam Vital Signs: Last Vital Signs Pulse 70 06/25/25 10:09 Resp 16 06/25/25 10:09 BP 144/83 H 06/25/25 10:09 Pulse Ox 99 06/25/25 10:09 Oxygen Delivery Method Room Air 06/25/25 10:09 BMI result Body Mass Index 31.7 Const General: no acute distress; No confusion Orientation/consciousness: patient oriented x3 and No confusion Eyes General: appearance normal, both eyes and all related structures Pupils: Equal, round and reactive pupils present EOM: EOMs intact bilaterally Neck Neck: Yes full ROM Chest Chest palpation & inspection: normal inspection of the chest Resp Effort & Inspection: normal respiratory effort, able to speak in complete sentences, normal respiratory pattern, no audible wheezes and no cough Cardio Jugular venous distension: no JVD GI Inspection: Yes normal to inspection Back/Spine/Pelvis Other: Flexing forward aggravates his pain. Loading test is equivocal. Joe test is positive on the left, Gaenslen test is positive on the left, yeoman's test is positive on the left, SLR is negative bilaterally. Lasegue test is negative bilaterally. Able to stand on bilateral tiptoes and bilateral heels without difficulty. Neuro General: patient oriented x3, gait normal and No confusion Cranial nerves: Yes CN's II-XII intact bilaterally, Yes Equal, round and reactive pupils present, Yes Normal hearing present and Yes Ability to bilaterally elevate shoulders present Speech: No Abnormal speech present Gait exam (Neuro): Normal gait present Motor exam (neuro): 5/5 motor strength present throughout Sensory Exam: No Sensory deficit (Neuro) Extrem General: No pedal edema Psych Speech and movement: Normal speech and movement present Affect: normal affect Attitude: cooperative Thought process: Normal thought process present Thought content: Normal thought content present Insight: Good insight present (Psych) Judgement: Good judgement present (Psych) Assessment & Plan Assessment & Plan (1) Vertebrogenic low back pain: Code(s): M54.51 - Vertebrogenic low back pain Category: Medical (2) Spondylosis of lumbar region without myelopathy or radiculopathy: Code(s): M47.816 - Spondylosis without myelopathy or radiculopathy, lumbar region Category: Medical (3) Chronic pain syndrome: Code(s): G89.4 - Chronic pain syndrome Category: Medical (4) Sacroiliitis: Code(s): M46.1 - Sacroiliitis, not elsewhere classified Category: Medical (5) Chronic left sacroiliac joint pain: Code(s): M53.3 - Sacrococcygeal disorders, not elsewhere classified; G89.29 - Other chronic pain Category: Medical Plan This patient showed me MRI on his telephone which demonstrated L5-S1 facet arthropathy, disc desiccation, Modic type changes. I need the images of this MRI to be available for me. On physical exam patient exhibits signs of sacroiliitis on the left. I decided to schedule him for diagnostic left sacroiliac joint injection. I also requested him to bring me images of the previously performed therapeutic sacroiliac joint injection as well as previously performed MRI. I will see this patient after diagnostic sacroiliac joint injection. Coding Level of Care Code Est Pt Level 3 (58925) Diagnoses Vertebrogenic low back pain M54.51 Spondylosis of lumbar region without myelopathy or radiculopathy M47.816 Chronic pain syndrome G89.4 Sacroiliitis M46.1 Chronic left sacroiliac joint pain M53.3; G89.29
[2025-06-25 10:09] VITALS: BP 144/83; PULSE 70; RESP 16; O2SAT 99; BMI 31.7
--- OUTSIDE RECORDS SUMMARY | 2025-06-25 12:17 | XMS_ITS | Encounter Summary ---
Author Organization [facility] Address [address] [facility] [address] [place] [phone] Phone Care Team Providers Care Bass Viol Repairer Name Role Phone Unknown, Unknown Primary Care Provider Roge Deng MD Primary Care Provider + Encounter Details Date Type Department Care Team (Late st Contact Info) Description 06/19/2023 Procedure Pass [address] [place] [address] Social History Tobacco Use Types Packs/Day Years [...] on filedocumented in this encounter Care Teams Bass Viol Repairer Relationship Specialty Start Date End Date Unknown, Unknown, MD PCP - General 11/21/17 06/27/23 Roge Delgado MD [address] [place] [id number] PCP - General Internal Medicine 06/28/23 documented as of this encounter Additional Source Comments The information contained in this document represents components of the legal health record. It is not the complete legal health record.[facility]
--- OUTSIDE RECORDS SUMMARY | 2025-06-25 12:17 | XMS_ITS | Encounter Summary ---
Author Organization [facility] Address [address] [place] [address] [place] [phone] Phone Care Team Providers Care Desizing Pad Operator Name Role Phone Unknown, Unknown Primary Care Provider Roge Deng MD Primary Care Provider + Encounter Details Date Type Department Care Team (Late st Contact Info) Description 07/11/2018 Prep for Surgery [facility] [address] [place] [phone] Ciro Noonan DO [address] [place] [address] Orthopedics & Sports Medicine, [facility] [place] [address] [email or web address] Social History Tobacco Use Types Packs/Day Years [...] documented as of this encounter Care Teams Desizing Pad Operator Relationship Specialty Start Date End Date Unknown, Unknown, MD PCP - General 11/21/17 06/27/23 Roge Delgado MD [address] [place] [id number] PCP - General Internal Medicine 06/28/23 documented as of this encounter Additional Source Comments The information contained in this document represents components of the legal health record. It is not the complete legal health record.[facility]
--- OUTSIDE RECORDS SUMMARY | 2025-06-25 12:17 | XMS_ITS | Data Portability ---
Author Organization [facility], [address] Address [address] [place] [address] Care Team Providers Care Impregnator Operator Name Role Phone CINDI GILLIS Primary Care Provider Assessment No assessment recorded. Plan of Treatment Reminders Order Date Submit Date Provider Last Modified By Organization Details Last Modified Time Details Appointments None recorded. Lab rapid flu (A+B) 2023 024 [facility], [address] [place] [address], [id number], 4 19:34:58 SARS CoV 2 (COVID-19) Ag, QL, IA, upper respirator y specimen 2023 024 [facility], [address] [place] [address], [id number], 4 19:34:58 Referral None recorded. Procedures None recorded. Surgeries None recorded. Imaging None recorded. Medication Orders benzonatat e 100 mg capsule 2023 024 [facility], [address] [place], [address], 19:40:27 Patient TargetsNo targets recorded. Patient Instructions Encounter Date Encounter Id Patient Instructions Last Modified By Organization Details Last Modified Time 07/13/2024 [id number] You were seen today for cold symptoms. COVID-19 and flu tests are negative. No findings of pneumonia on your lung exam. Symptom is consistent with viral URI (upper respiratory infection)/Cold. Recommendation as below: - Tessalon perles 100 mg every 6 hrs as needed for cough - Mucinex to help with congestion - Add flonase daily to help with congestion -Tylenol 1000 mg every 6 hours as needed for pain/fever/body aches -Drink plenty of fluid and get plenty of rest -Return to urgent care if worsening symptoms [email or web address] Not available 07/13/2024 19:34:34 Reason for Referral None Reported. Results Created Date Observation Date Name Description Value Unit Range Abnormal Flag Note LastModifiedBy Organization Detail LastModifiedTime 07/13/20 24 07/13/2024 SARS CoV 2 (COVI D-19) Ag, QL, IA, upper respi rator y speci men Unknown Analyte negati ve Not Available [address] [place] [address], [id number], 07/13/2024 19:20:21 07/13/20 24 07/13/2024 SARS CoV 2 (COVI D-19) Ag, QL, IA, upper respi rator y speci men Unknown Analyte N Not Available [address] [place] [address], [id number], 07/13/2024 19:20:21 07/13/20 24 07/13/2024 SARS CoV 2 (COVI D-19) Ag, QL, IA, upper respi rator y speci men Unknown Analyte YES Not Available [address] [place] [address], [phone], 07/13/2024 19:20:21 Result Notes None recorded. Problems No Known Problems Medical Equipment None Reported. Allergies No known drug allergies Medications Name Sig Start Date Stop Date Status Note LastModified by Organization Details LastModified Time valacyclovi r 1 gram tablet TAKE 1 TABLET BY MOUTH ONCE DAILY active Not Available Not Available No t Available meloxicam 15 mg tablet TAKE 1 TABLET BY MOUTH ONCE DAILY AFTER EATING. STOP IF STOMACH UPSET OCCURS OR PAIN IS RESOLVED 07/13 completed Not Available Not Available Not Available benzonatate 100 mg capsule Take 1 capsule 3 times a day by oral route as needed, for cough. 2023 active Not Available Not Available Not Avai lable Vitals Date Recorded Body height Body mass index (BMI) Body weight Oxygen saturation Oxygen saturation in Arterial blood by Pulse oximetry Heart rate Respiratory rate Body temperature Provider Name and Address Organization Details Last Updated DateTime 182.88 cm 30.5 kg/m2 042372. 28 g 98 % 98 % 93 /min 18 /min 98 [degF] Dani Soriano PA - [facility] 4 19:16:35 Social History Question Answer Notes LastModified by Organizat ion Details LastModified Time Tobacco Smoking Status Never Smoker Dani macedo PA - [facility] 07/13/2024 19:18:13 Have You Had A Flu Shot This Season? No Information not available 07/13/2024 If No, Would You Like A Flu Shot Today? No Information not available 07/13/2024 What Is Your Water Source? City Information not available 07/13/2024 What Is Your Heat Source? Gas Information not available 07/13/2024 What Is Your Relationship Status? Information not available 07/13/2024 Are You Passively Exposed To Smoke? No Information no t available 07/13/2024 Have You Recently Traveled Abroad? No Information not available 07/13/2024 Sex: Unknown Functional Status Question Answer Note LastModified by Organizat ion Details LastModified Time Do you use any illicit or recreational drugs? No Information not available 07/13/2024 Do you or have you ever used any other forms of tobacco or nicotine? No Information not available 07/13/2024 Are you currently employed? Yes Information not available 07/13/2024 Mental Status None recorded. Family History Relationship Description Onset Age of this Age Resolved Age Notes LastModified by Organization Details LastModified Time Father Heart disease [email or web address] Not available 07/13/2024 19:17:53 Medical History No medical history recorded. Immunizations Vaccine Type Date Status Note Provider Nam e and Address Organization Details Recorded Time COVID-19, mRNA, LNP-S, PF, 100 mcg/0.5mL dose or 50 mcg/0.25mL dose 1 completed Dani Soriano null, PA - [facility] 07/13/2024 19:16:41 COVID-19, mRNA, LNP-S, PF, 100 mcg/0.5mL dose or 50 mcg/0.25mL dose 1 completed Dani Fitzgerald Bo null, PA - [facility] 07/13/2024 19:16:41 Tdap 2 completed Dani Fitzgerald Bo null, PA - [facility] 07/13/2024 19:16:41 Td (adult), 2 Lf tetanus toxoid, preservative free, adsorbed 2 completed Danicayetano Soriano null, PA - [facility] 07/13/2024 19:16:41 Past Encounters Encounter ID Performer Location Encounter Start Date Encounter Closed Date Diagnosis/Indication Diagnosis SNOMED-CT Code Diagnosis ICD10 Code Diagnosis IMO Codes Diagnosis Note [id number] [facility] [address] [address] 09/25/2017 11:41:22 09/25/2017 13:10:30 [id number] MACKENZIE VILLARREAL [place] [address] [address] 07/13/2024 19:08:26 07/13/2024 19:36:42 Cough 20802907 R05.9 Health Concerns Section Related Observation LastModified by Organization Detai ls LastModified Time None Recorded Concern Status LastModified by Organization Details LastModified Time None Recorded Advance Directives Directive None Recorded Payers Insurance Date Sequence Insurance Name Policy Number Policy Medrano Covered Member ID Medrano Member ID Guarantor Name 07/13/2024 1 [facility] [id number] 1 Heath Otto [id number] Heath Otto Notes Date Note Type Note Provider Name and Address Organization Details Recorded Time 07/13/2024 text/html CoughReported by PatientCough intermittently productive, congestion/runny nose for the last 2-3 days. Prior he had body ache, WATTERS and fatigue which has subsided. Has been trying Robitussin and Theraflu with minimal benefits. 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 No fever/chills. MACKENZIE VILLARREAL MD [address] [place], [phone], PA - [facility] 07/13/2024 19:38:14
--- OUTSIDE RECORDS SUMMARY | 2025-06-25 12:17 | XMS_ITS | Encounter Summary ---
Author Organization [facility] Address [address] [place] [address] [place] [address] Phone Care Team Providers Care Binder Caser Name Role Phone Unknown, Unknown Primary Care Provider Roge Deng MD Primary Care Provider + Encounter Details Date Type Department Care Team (Late st Contact Info) Description 01/04/2018 Ancillary Orders [facility] Orthopedics & Sports Medicine [address] [place] [address] Ciro Noonan DO [address] [place] [address] Orthopedics & Sports Medicine, [place] [address] [email or web address] Social History Tobacco Use Types [...] documented as of this encounter Care Teams Binder Caser Relationship Specialty Start Date End Date Unknown, Unknown, PCP - General 11/21/17 06/27/23 Roge Delgado MD [address] [place] [address] PCP - General Internal Medicine 06/28/23 documented as of this encounter Additional Source Comments The information contained in this document represents components of the legal health record. It is not the complete legal health record.[facility]
--- OUTSIDE RECORDS SUMMARY | 2025-06-25 12:17 | XMS_ITS | Clinical Summary ---
Author Organization [facility] Address [address] [place] [address] Care Team Providers Care Director Appointment Name Role Phone Roge Delgado MD Primary Care Provider + [phone] Social History Tobacco Use Types Packs/Day Years [...] age to complete this topic Care Teams Director Appointment Relationship Specialty Start Date End Date Roge Delgado MD PCP - General Bottle Capping Machine Operator 06/16/21
--- OUTSIDE RECORDS SUMMARY | 2025-06-25 12:17 | XMS_ITS | Clinical Summary ---
Author Organization [facility] Address [address] [place] [address] Phone Care Team Providers Care Literature Teacher Name Role Phone Roge Delgado MD Primary Care Provider + Allergies Active Allergy Reactions Criticality Noted Date [...] this topic Medical Devices Implanted Type Area Video Photographer Device Identifier Shelf Expiration Date Model / Serial / Lot [place] Suture 7x19.1mm Swivelock Tenodesis Bx/5ea - [id number] Implanted:Qty: 1 on 10/11/2018 by Ciro Noonan DO at [facility] 09/27/2019 [id number] / / [id number] Insurance [facility] Member Subscriber Plan / Payer (Ef fective 2017-Present) Name:Heath Khan Relation to Subscriber:Self Name:HEATH KHAN Payer ID:Not on file Type:HMO Address: [place] [id number] [facility] [address] [place] [place] [address]O [facility] [address] [place], [place] [address]O Advance Directives For more information, please contact: [phone] (9AM - 5PM [facility], Monday-Monday) * Full Code (Presumed) (Latest Code Status on File) Date Activated Date Inactivated Comments 10/11/2018 7:40 AM 10/11/2018 3:48 PM Care Teams Literature Teacher Relationship Specialty Start Date End Date Roge Delgado MD [address] [place] [address] PCP - General Internal Medicine 06/28/23 Additional Source Comments The information contained in this document represents components of the legal health record. It is not the complete legal health record.[facility]
--- OUTSIDE RECORDS SUMMARY | 2025-06-25 12:17 | XMS_ITS | Encounter Summary ---
Author Organization [facility] Address [address] [place] [address] [place] [address] Phone Care Team Providers Care Machine Overhauler Name Role Phone Unknown, Unknown Primary Care Provider Roge Deng MD Primary Care Provider + Encounter Details Date Type Department Care Team (Late st Contact Info) Description 10/11/2018 Procedure Pass [place] Admitting Dept - Virtual Department [address] [place] [address] Social History Tobacco Use Types Packs/Day Years [...] documented as of this encounter Care Teams Machine Overhauler Relationship Specialty Start Date End Date Unknown, Unknown, PCP - General 11/21/17 06/27/23 Roge Delgado MD [address] [place] [address] PCP - General Internal Medicine 06/28/23 documented as of this encounter Additional Source Comments The information contained in this document represents components of the legal health record. It is not the complete legal health record.[facility]
--- OUTSIDE RECORDS SUMMARY | 2025-06-25 12:17 | XMS_ITS | Encounter Summary ---
Author Organization [facility] Address [address] [place] [address] [place] [address] Phone Care Team Providers Care Speech Therapist Early Intervention Name Role Phone Unknown, Unknown Primary Care Provider Roge Deng MD Primary Care Provider + Encounter Details Date Type Department Care Team (Late st Contact Info) Description 06/27/2018 Procedure Pass [facility] [place], [address] [address] Social History Tobacco Use Types Packs/Day Years [...] documented as of this encounter Care Teams Speech Therapist Early Intervention Relationship Specialty Start Date End Date Unknown, Unknown, PCP - General 11/21/17 06/27/23 Roge Delgado MD [address] [place] [address] PCP - General Internal Medicine 06/28/23 documented as of this encounter Additional Source Comments The information contained in this document represents components of the legal health record. It is not the complete legal health record.[facility]
--- OUTSIDE RECORDS SUMMARY | 2025-06-25 12:18 | XMS_ITS | Encounter Summary ---
Author Organization [facility] Address [address] [place] [address] [place] [address] Phone Care Team Providers Care Coordinator Cardiopulmonary Services Name Role Phone Unknown, Unknown Primary Care Provider Roge Deng MD Primary Care Provider + Encounter Details Date Type Department Care Team (Late st Contact Info) Description 01/04/2018 Ancillary Orders [facility] - [address] [address] Ciro Noonan DO [address] [place] [address] Orthopedics & Sports Medicine, [place] [address] [email or web address] Left shoulder pain, unspecified chronicity Social History [...] note for this date of service. us Cirojono Noonan DO IMG XR UPPER EXTREMITY Flavia l Result documented in this encounter Visit Diagnoses Diagnosis Left shoulder pain, unspecified chronicity Left shoulder pain, unspecified chronicity documented in this encounter Additional Health Concerns Infection Onset Date Last Indicated Resolved Time CoV-Risk Comment:COVID-19 test pending 12/01/2019 12/01/2019 12/15/2019 1:23 AM EDT documented as of this encounter Care Teams Coordinator Cardiopulmonary Services Relationship Specialty Start Date End Date Unknown, Unknown, MD PCP - General 11/21/17 06/27/23 Roge Delgado MD [address] [place] [address] PCP - General Internal Medicine 06/28/23 documented as of this encounter Additional Source Comments The information contained in this document represents components of the legal health record. It is not the complete legal health record.[facility]
== END 2025-06-25 10:25 | disposition home or self-care (01) ==
LOC: HO.PMC 10:06
PROVIDERS: PCP Pediatrics; Visit Provider Anesthesiology
DX: M54.51 Vertebrogenic low back pain (principal); M47.816 Spondylosis without myelopathy or radiculopathy, lumbar region; G89.4 Chronic pain syndrome; M46.1 Sacroiliitis, not elsewhere classified; M53.3 Sacrococcygeal disorders, not elsewhere classified; G89.29 Other chronic pain
CPT/HCPCS: 99213

== ENCOUNTER → 2025-06-25 10:05 | Outpatient (BNVA) | payer OTHER, SELFPAY | PROVIDERS: PCP Pediatrics; Visit Provider Anesthesiology | DX: G89.4 Chronic pain syndrome (principal); M54.51 Vertebrogenic low back pain; M47.816 Spondylosis without myelopathy or radiculopathy, lumbar region; M46.1 Sacroiliitis, not elsewhere classified; M53.3 Sacrococcygeal disorders, not elsewhere classified; Z98.890 Other specified postprocedural states | CPT/HCPCS: 99212 ==

== ENCOUNTER 2025-07-29 07:37 | Outpatient (REF) | payer OTHER, SELFPAY ==
--- NOTE | ~2025-07-29 | FL_ITS ---
EXAMINATION: FLUOROSCOPY GUIDANCE FOR NEEDLE PLACEMENT CLINICAL INFORMATION: M46.1 - Sacroiliitis, not elsewhere classified COMPARISON: None available. TECHNIQUE: Fluoroscopy guidance for pain management procedure FINDINGS: 2 images demonstrate needle placement and contrast injection over the left sacroiliac joint. FLUOROSCOPY TIME: 12 DOSE AREA PRODUCT: 650 mGy-cm2 FL/FL guidance in treatment room IMPRESSION: Fluoroscopy guidance for pain management procedure Electronically signed by: Jaky Urrutia MD 07/29/2025 03:12 PM [facility]
--- OUTSIDE RECORDS SUMMARY | 2025-07-29 07:40 | XMS_ITS | Clinical Summary ---
Author Organization [facility] Address [address] [place] [address] Care Team Providers Care Cloth Dyer Name Role Phone Roge Delgado MD Primary Care Provider + [phone] Social History Tobacco Use Types Packs/Day Years [...] age to complete this topic Care Teams Cloth Dyer Relationship Specialty Start Date End Date Roge Delgado MD PCP - General Child Care Group Leader 06/16/21
--- OUTSIDE RECORDS SUMMARY | 2025-07-29 07:40 | XMS_ITS | Clinical Summary ---
Author Organization [facility] Address [address] [place] [address] Phone Care Team Providers Care Carbon Sequestration Plant Operator Name Role Phone Roge Delgado MD Primary [...] this topic Medical Devices Implanted Type Area Livestock Nutritionist Device Identifier Shelf Expiration Date Model / Serial / Lot [place] Suture 7x19.1mm Swivelock Tenodesis Bx/5ea - [id number] Implanted:Qty: 1 on 10/11/2018 by Ciro Noonan DO at [facility] 09/27/2019 [id number] / / [id number] Insurance [facility] Member Subscriber Plan / Payer (Ef fective 2017-Present) Name:Heath Khan Relation to Subscriber:Self Name:HEATH KHAN Payer ID:Not on file Type:HMO Address: [place] [id number] [facility] [address] [address] [place] [address]O [facility] [address] [place] [place] [address] Advance Directives For more information, please contact: [phone] (9AM - 5PM [facility], Monday-Monday) * Full Code (Presumed) (Latest Code Status on File) Date Activated Date Inactivated Comments 10/11/2018 7:40 AM 10/11/2018 3:48 PM Care Teams Carbon Sequestration Plant Operator Relationship Specialty Start Date End Date Roge Delgado MD [address] [place] [address] PCP - General Internal Medicine 06/28/23 Additional Source Comments The information contained in this document represents components of the legal health record. It is not the complete legal health record.[facility]
--- OUTSIDE RECORDS SUMMARY | 2025-07-29 07:40 | XMS_ITS | Encounter Summary ---
Author Organization [facility] Address [address] [place] [address] [place] [address] Phone Care Team Providers Care Test Eng Name Role Phone Unknown, Unknown Primary Care Provider Roge Deng MD Primary Care Provider + Encounter Details Date Type Department Care Team (Late st Contact Info) Description 06/27/2018 Procedure Pass [facility], [address] [address] Social History Tobacco Use Types Packs/Day Years [...] documented as of this encounter Care Teams Test Eng Relationship Specialty Start Date End Date Unknown, Unknown, PCP - General 11/21/17 06/27/23 Roge Delgado MD [address] [place] [address] PCP - General Internal Medicine 06/28/23 documented as of this encounter Additional Source Comments The information contained in this document represents components of the legal health record. It is not the complete legal health record.[facility]
--- OUTSIDE RECORDS SUMMARY | 2025-07-29 07:40 | XMS_ITS | Encounter Summary ---
Author Organization [facility] Address [address] [place] [address] [place] [phone] Phone Care Team Providers Care Metal Roofing Mechanic Name Role Phone Unknown, Unknown Primary Care Provider Roge Deng MD Primary Care Provider + Encounter Details Date Type Department Care Team (Late st Contact Info) Description 07/11/2018 Prep for Surgery [facility] Orthopedics & Sports Medicine [address] [place] [address] Ciro Noonan DO [address] [place] [address] Orthopedics & Sports Medicine, [facility] [place] [address] [email or web address] Social History Tobacco Use Types Packs/Day Years [...] as of this encounter Care Teams Metal Roofing Mechanic Relationship Specialty Start Date End Date Unknown, Unknown, MD PCP - General 11/21/17 06/27/23 Roge Delgado MD [address] [place] [address] PCP - General Internal Medicine 06/28/23 documented as of this encounter Additional Source Comments The information contained in this document represents components of the legal health record. It is not the complete legal health record.[facility]
--- OUTSIDE RECORDS SUMMARY | 2025-07-29 07:40 | XMS_ITS | Clinical Summary ---
Author Organization [facility] [address] [facility] lding Address [address] [place] [address] Phone Care Team Providers Care Windrower Operator Name Role Phone Adair Delgado MD Primary Care Provider [phone] Allergies Active Allergy Reactions Criticality Noted Date Comments Azithromycin Nausea Only Low 10/04/2011 nausea Medications valACYclovir (VALTREX) 1 gram tablet Take 1 Tablet by mouth daily. - Oral Active testosterone cypionate 200 mg/mL syringe Inject 0.5 mL into the shoulder, thigh, or buttocks 1 (one) time per week. Max Daily Amount: 0.5 mL Active Active Problems Problem Noted Date Diagnosed Date Family history of heart disease 02/03/2025 Sacroiliitis, not elsewhere classified (CMS/[facility] V24) 08/30/2024 Assessment & Plan (08/30/2024 [...] be a 0/10. He had gone to [facility] physical therapy in the past, called them [...] sleep apnea or nocturnal hypoxia. Hypercholesteremia 10/22/2018 Assessment & Plan (06/25/2025 4:30 PM EDT): We reviewed possibilities for treatment including initiation of statin for persistent elevation of cholesterol levels for lifetime risk reduction but also further restratification and aggressive lifestyle modification. He has opted for the latter. To that end, I think it is reasonable to proceed with coronary calcium score. I did caution him that a negative test is not necessarily reassuring given that soft plaque (likely more common in his age group) is still possible and not detected by a standard calcium score. However, a positive test may identify him at a higher risk. He understands and wishes to proceed. I am also ordering additional lipid testing including an LP(a) as well as high-sensitivity CRP. I also revealed that his triglycerides are also elevated. He is aware of this and is modifying his lifestyle-eating less carbohydrates and sugar. Chest pain 09/17/2018 Assessment & Plan (06/25/2025 4:30 PM EDT): Reassurance mainly provided. I suspect this is musculoskeletal-possibly neuropathic related to his cervical spinal disease. I asked him to keep an eye out to make sure the symptoms are more progressive or worsening in severity-he assures me they are not. No further testing at this time. Orders: ECG [address] Heart Calcium Scoring wo Contrast; Future CARDIO lipoprotein a; Future High sensitivity CRP; Future Left shoulder pain 01/05/2018 Encounters Date Type Department Care Team Description 07/04/2025 Telephone [facility] [address] [place] [address] Vicki Cheney MD 06/25/2025 1:00 PM EDT Office Visit [facility] [address] [place] [address] Vicki Cheney MD Chest pain, unspecified type (Primary Dx); Hypercholesteremia; Cardiac risk counseling from Last 3 Months Immunizations Immunization Administration Dates Next Due Moderna SARS-CoV-2 COVID-19, mRNA, LNP-S, preservative free 10/08/2020,09/10/2020 Td Tetanus diptheria (Tdvax) 7yo and older 06/10 Tdap Tetanus diptheria acell ular pertussis (Boostrix; Adacel) 7yo and older 10/04/2011 Surgical History Surgery Date Site/Laterality Comments KNEE SURGERY 1997 PROCEDURE: HISTORICAL KNEE SURGERY; COMMENT: Left ACL '98 Foster Joann KNEE SURGERY 2012 PROCEDURE: HISTORICAL KNEE SURGERY; [...] Record ed Within the last 3 months, princess dimas many times did you visit the emergency [...] for your loved ones. For example, child protection specialist or elderly care for an older adult? [...] Sign Reading Time Taken Comments Blood Pressure 138/80 06/25/2025 1:13 PM EDT Pulse 78 06/25/2025 1:13 PM EDT Temperature 36.7 C (98.1 F) 07/18/2024 3:38 PM EST Respiratory Rate - - Oxygen Saturation 98% 06/25/2025 1:13 PM EDT Inhaled Oxygen Concentration - - Weight 107 kg (236 lb) 06/25/2025 1:13 PM EDT Height 180.3 cm (5' 11 ) 06/25/2025 1:13 PM EDT Body Mass Index 32.92 06/25/2025 1:13 PM EDT Plan of Treatment Health Maintenance [...] Procedure Name Priority Date/Time Associated Diagnosis Comments ECG 12-LEAD Routine 06/25/2025 1:21 PM EDT Chest pain, unspecified type EXTERNAL XRAY REPORT 06/20/2025 EXTERNAL XRAY REPORT 06/20/2025 LIPID PANEL WITH REFLEX TO DIRECT LDL Routine 01/22/2025 8:56 AM EDT Hypercholesterolemia HEPATITIS C ANTIBODY Routine 08/23/2024 9:01 AM EST Need for hepatitis C screening test from Last 3 Months or Most Recently Relevant to Health Maintenance Results * ECG 12 lead (06/25/2025 1:21 PM EDT) Ventricular Rate ECG 78 BPM GEMUSE Atrial Rate 78 BPM GEMUSE P-R Interval 154 ms GEMUSE QRS Duration 88 ms GEMUSE Q-T Interval 370 ms GEMUSE QTc 421 ms GEMUSE P Wave [place] 64 degrees GEMUSE R [place] 51 degrees GEMUSE T [place] 56 degrees GEMUSE ECG Interpretation Normal sinus rhythm Normal ECG No previous ECGs available Confirmed by VICKI CHENEY ([id number]) on 06/25/2025 4:16:37 PM GEMUSE 06/25/2025 1:21 PM EDT 06/25/2025 4:16 PM EDT Vicki Cheney MD ECG ORDERABLES Final Result GEMUSE * External Xray Report (06/20/2025) Only the most recent of2 resultswithin the time period is included. Anatomical Region Laterality Modality Radiographic Gabriella ging us Provider [facility] IM[facility] XR PROCEDURES Final Result * (ABNORMAL) Lipid panel with reflex to direct LDL (01/22/2025 8:56 AM EDT) Cholesterol 253(H) 0 - 200 mg/dL LAB CHEMISTRY METHOD 01/22/2025 2:13 PM EDT [facility] Triglycerides 252(H) 0 - 150 mg/dL LAB CHEMISTRY METHOD 01/22/2025 2:13 PM EDT [facility] HDL 46 >=40 mg/dL LAB CHEMISTRY METHOD 01/22/2025 2:13 PM EDT [facility] LDL Calculated 157(H) 0 - 100 mg/dL LAB CHEMISTRY METHOD 01/22/2025 2:13 PM EDT [facility] VLDL Cholesterol Felipe 50.4 mg/dL LAB CHEMISTRY METHOD 01/22/2025 2:13 PM EDT [facility] Non HDL Chol. (LDL+VLDL) 207(H) <145 mg/dL LAB CHEMISTRY METHOD 01/22/2025 2:13 PM EDT [facility] Chol/HDL Ratio 5.5(H) 0.0 - 4.4 LAB CHEMISTRY METHOD 01/22/2025 2:13 PM EDT [facility] Blood Venous blood specimen / Unknown Venipuncture / Unknown 01/22/2025 8:56 AM EDT 01/22/2025 8:56 AM EDT us Adair Delgado MD LAB BLOOD ORDERABLES Final Res ult Performing Organization Address City/[facility]/ZIP Co de Phone Number [facility] [address] [place] [address], [place] [phone] * Hepatitis C antibody (08/23/2024 9:01 AM EST) Hepatitis C Antibody Negative Negative LAB CHEMISTRY METHOD 08/23/2024 1:05 PM EST [facility] Blood Venous blood specimen / Unknown Venipuncture / Unknown 08/23/2024 9:01 AM EST 08/23/2024 9:01 AM EST Donald HUERTA LAB BLOOD ORDERABLES Final Res ult [facility] [address] [place] [address], [place] [phone] from Last 3 Months or Most Recently Relevant to Health Maintenance Insurance [facility] Care Teams Windrower Operator Relationship Specialty Start Date End Date Adair Delgado MD [address] [place] [id number] PCP - General Internal Medicine 05/20/21
--- OUTSIDE RECORDS SUMMARY | 2025-07-29 07:40 | XMS_ITS | Encounter Summary ---
Author Organization [facility] Address [address] [place] [address] [place] [address] Phone Care Team Providers Care Building Superintendent Name Role Phone Unknown, Unknown Primary Care Provider Roge Deng MD Primary Care Provider + Encounter Details Date Type Department Care Team (Late st Contact Info) Description 01/04/2018 Ancillary Orders [facility] Medicine [address] [place] [address] Ciro Noonan DO [address] [place] [address] Orthopedics & Sports Medicine, [facility] [place] [address] Social History Tobacco Use Types Packs/Day Years [...] documented as of this encounter Care Teams Building Superintendent Relationship Specialty Start Date End Date Unknown, Unknown, PCP - General 11/21/17 06/27/23 Roge Delgado MD [address] [place] [address] PCP - General Internal Medicine 06/28/23 documented as of this encounter Additional Source Comments The information contained in this document represents components of the legal health record. It is not the complete legal health record.[facility]
--- OUTSIDE RECORDS SUMMARY | 2025-07-29 07:40 | XMS_ITS | Data Portability ---
Author Organization [facility] [address] Address [address] [place] [address] Care Team Providers Care Boot And Shoe Repairman Name Role Phone CINDI GILLIS Primary Care Provider [phone] Assessment No assessment recorded. Plan of Treatment Reminders Order Date Submit Date Provider Last Modified By Organization Details Last Modified Time Details Appointments None recorded. Lab rapid flu (A+B) 2023 024 [facility], [address] [place] [address], [phone], 4 19:34:58 SARS CoV 2 (COVID-19) Ag, QL, IA, upper respirator y specimen 2023 024 [facility], [address] [place] [address], [phone], 4 19:34:58 Referral None recorded. Procedures None recorded. Surgeries None recorded. Imaging None recorded. Medication Orders benzonatat e 100 mg capsule 2023 024 [facility], [address] [place], [address], 19:40:27 Patient TargetsNo targets recorded. Patient Instructions Encounter Date Encounter Id Patient Instructions Last Modified By Organization Details Last Modified Time 07/13/2024 [id number] You were seen today for cold symptoms. [...] men Unknown Analyte negati ve Not Available [address] [place] [address], [phone], 07/13/2024 19:20:21 07/13/20 24 07/13/2024 SARS CoV 2 (COVI D-19) Ag, QL, IA, upper respi rator y speci men Unknown Analyte N Not Available [address] [place] [address], [phone], 07/13/2024 19:20:21 07/13/20 24 07/13/2024 SARS CoV 2 (COVI D-19) Ag, QL, IA, upper respi rator y speci men Unknown Analyte YES Not Available [address] [place] [address], [phone], 07/13/2024 19:20:21 Result Notes None recorded. Problems [...] mass index (BMI) Body weight Oxygen saturation Heart rate Respiratory rate Body temperature Provider Name and Address Organization Details Last Updated DateTime 4 182.88 cm 30.5 kg/m2 952012. 28 g 98 % 93 /min 18 /min 98 [degF] Danicayetano Soriano PA - [facility] 19:16:35 Social History Question Answer Notes LastModified by Organizat ion Details LastModified Time Tobacco Smoking Status Never Smoker Dani Amilcar macedo, PA - [facility] 07/13/2024 19:18:13 Have [...] [facility] 07/13/2024 19:16:41 Tdap 2 completed Dani Soriano null, PA - [facility] 07/13/2024 19:16:41 Td (adult), 2 Lf tetanus toxoid, preservative free, adsorbed 2 completed Danicayetano Soriano null, PA - [facility] 07/13/2024 19:16:41 Past Encounters Encounter ID Performer Location Encounter Start Date Encounter Closed Date Diagnosis/Indication Diagnosis SNOMED-CT Code Diagnosis ICD10 Code Diagnosis IMO Codes Diagnosis Note [id number] _[facility] [address] [address] 09/25/2017 11:41:22 09/25/2017 13:10:30 [id number] MACKENZIE VILLARREAL MD _[address] [address] 07/13/2024 19:08:26 07/13/2024 19:36:42 Cough 89376588 R05.9 Health Concerns Section Related Observation LastModified by Organization Detai ls LastModified Time None Recorded Concern Status LastModified by Organization Details LastModified Time None Recorded Advance Directives Directive None Recorded Payers Insurance Date Sequence Insurance Name Policy Number Policy Medrano Covered Member ID Medrano Member ID Guarantor Name 07/13/2024 1 [facility] [id number] 1 Heath Otto [id number] Heath Otto Notes Date Note Type Note [...] MACKENZIE VILLARREAL MD [address] [place], [address], [place] - [facility] 07/13/2024 19:38:14
--- OUTSIDE RECORDS SUMMARY | 2025-07-29 07:40 | XMS_ITS | Encounter Summary ---
Author Organization [facility] Address [address] [facility] [address] [place] [address] Phone Care Team Providers Care Quality Assurance Clerk Name Role Phone Unknown, Unknown Primary Care Provider Roge Deng MD Primary Care Provider + Encounter Details Date Type Department Care Team (Late st Contact Info) Description 06/19/2023 Procedure Pass [address] [place] [address] Social History Tobacco Use Types Packs/Day Years [...] on filedocumented in this encounter Care Teams Quality Assurance Clerk Relationship Specialty Start Date End Date Unknown, Unknown, MD PCP - General 11/21/17 06/27/23 Roge Delgado MD [address] [place] [address] PCP - General Internal Medicine 06/28/23 documented as of this encounter Additional Source Comments The information contained in this document represents components of the legal health record. It is not the complete legal health record.[facility]
--- OUTSIDE RECORDS SUMMARY | 2025-07-29 07:40 | XMS_ITS | Encounter Summary ---
Author Organization [facility] Address [address] [place] [address] [place] [address] Phone Care Team Providers Care Corporate Director Of Pharmacy Name Role Phone Unknown, Unknown Primary Care Provider Roge Deng MD Primary Care Provider + Encounter Details Date Type Department Care Team (Late st Contact Info) Description 10/11/2018 Procedure Pass [place] Admitting Dept - Virtual Department [address] [place] [address] Social History Tobacco Use Types Packs/Day Years [...] documented as of this encounter Care Teams Corporate Director Of Pharmacy Relationship Specialty Start Date End Date Unknown, Unknown, PCP - General 11/21/17 06/27/23 Roge Delgado MD [address] [place] [address] PCP - General Internal Medicine 06/28/23 documented as of this encounter Additional Source Comments The information contained in this document represents components of the legal health record. It is not the complete legal health record.[facility]
--- OUTSIDE RECORDS SUMMARY | 2025-07-29 07:40 | XMS_ITS | Encounter Summary ---
Author Organization [facility] Address [address] [place] [address] [place] [address] Phone Care Team Providers Care Vice President Of Procurement Name Role Phone Unknown, Unknown Primary Care Provider Roge Deng MD Primary Care Provider + Encounter Details Date Type Department Care Team (Late st Contact Info) Description 01/04/2018 Ancillary Orders [facility] - [address] [address] Ciro Noonan DO [address] [place] [address] Orthopedics & Sports Medicine, [place] [address] [email or web address] Left shoulder pain, unspecified chronicity Social History [...] documented as of this encounter Care Teams Vice President Of Procurement Relationship Specialty Start Date End Date Unknown, Unknown, MD PCP - General 11/21/17 06/27/23 Roge Delgado MD [address] [place] [address] PCP - General Internal Medicine 06/28/23 documented as of this encounter Additional Source Comments The information contained in this document represents components of the legal health record. It is not the complete legal health record.[facility]
== END 2025-07-29 07:38 | disposition home or self-care (01) ==
LOC: CF 07:37
PROVIDERS: Visit Provider Anesthesiology
DX: M46.1 Sacroiliitis, not elsewhere classified (principal); M54.51 Vertebrogenic low back pain; M47.816 Spondylosis without myelopathy or radiculopathy, lumbar region; G89.4 Chronic pain syndrome; M53.3 Sacrococcygeal disorders, not elsewhere classified
CPT/HCPCS: 27096; J2003; J2795; Q9967

== ENCOUNTER 2025-07-29 12:29 | Outpatient (AMB) | payer OTHER, SELFPAY ==
[2025-07-29 12:56] VITALS: BP 144/75; PULSE 98; RESP 16; O2SAT 70; BMI 31.7
--- NOTE | 2025-07-29 12:56 | A.OFFVIS_ITS ---
Vital Signs 07/29/25 12:56 07/29/25 13:28 Height 6 ft Weight 234 lb BMI 31.7 BP 144/75 H 150/99 H Blood Pressure Location Lt brachial Lt brachial Position Sitting Sitting Respiration 16 16 Pulse 98 91 Pulse Source Pulse Oximeter Pulse Oximeter Pulse Oximetry (%) 70 L 99 Oxygen Delivery Method Room Air Room Air Intake Visit Reasons: (L) Dx Sacroiliac Joint Injection Allergies azithromycin Allergy (Verified 06/25/25 10:09) Nausea PFSH Medical History Family history of heart disease Habitual snoring Cervical spondylosis with radiculopathy Hypercholesteremia Back pain Social History Patient Tobacco Use Status: Never used Tobacco Physical Exam Vital Signs: Last Vital Signs Pulse 91 07/29/25 13:28 Resp 16 07/29/25 13:28 BP 150/99 H 07/29/25 13:28 Pulse Ox 99 07/29/25 13:28 Oxygen Delivery Method Room Air 07/29/25 13:28 BMI result Body Mass Index 31.7 Assessment & Plan Assessment & Plan (1) Vertebrogenic low back pain: Code(s): M54.51 - Vertebrogenic low back pain Category: Medical (2) Spondylosis of lumbar region without myelopathy or radiculopathy: Code(s): M47.816 - Spondylosis without myelopathy or radiculopathy, lumbar region Category: Medical (3) Chronic pain syndrome: Code(s): G89.4 - Chronic pain syndrome Category: Medical (4) Sacroiliitis: Code(s): M46.1 - Sacroiliitis, not elsewhere classified Category: Medical (5) Chronic left sacroiliac joint pain: Code(s): M53.3 - Sacrococcygeal disorders, not elsewhere classified; G89.29 - Other chronic pain Category: Medical Plan Left diagnostic sacroiliac joint injection. the risks, benefits and alternatives were discussed with the patient and informed consent was obtained, patient was placed in the prone position on the operating table. Time out was performed delineating correct site and side of the procedure , name and of the patient, patient participated in time out procedure. The lower back and upper buttocks of the patient were prepped with ChloraPrep and draped with sterile self adhesive utility towels. C-arm was brought over the operating field and picture of the left SI joint was demonstrated on the screen. Tilting C-arm contralateral to the right the posterior silhouette of the sacroiliac joint was superimposed on anterior silhouette of the sacroiliac joint. The point slightly medial to the sacroiliac joint silhouette was injected with lidocaine 2%, forming skin wheal. After that 22 gauge 3-1/2 inch spinal needle was inserted through the skin wheal and advanced to were the sacroiliac joint in tunnel vision fashion. When the needle entered the sacroiliac joint capsule injection of the contrast was performed delineating intra-articular and minimally periarticular spread of the contrast. After that injection of the treatment solution of ropivacaine 0.5% 5 cc into the joint was performed. Upon completion of the injection needle was withdrawn sterile Band- Aid was applied. The patient tolerated the procedure well. Orders: Orders FL guidance in treatment room Today M46.1 - Sacroiliitis, not elsewhere classified Coding Level of Care Code Procedure Only Diagnoses Vertebrogenic low back pain M54.51 Spondylosis of lumbar region without myelopathy or radiculopathy M47.816 Chronic pain syndrome G89.4 Sacroiliitis M46.1 Chronic left sacroiliac joint pain M53.3; G89.29
[2025-07-29 13:28] VITALS: BP 150/99; PULSE 91; RESP 16; O2SAT 99
== END 2025-07-29 13:27 | disposition home or self-care (01) ==
LOC: HO.PMCPRC 12:29
PROVIDERS: PCP Pediatrics; Visit Provider Anesthesiology
DX: M54.51 Vertebrogenic low back pain (principal); M47.816 Spondylosis without myelopathy or radiculopathy, lumbar region; G89.4 Chronic pain syndrome; M46.1 Sacroiliitis, not elsewhere classified; M53.3 Sacrococcygeal disorders, not elsewhere classified; G89.29 Other chronic pain
CPT/HCPCS: 27096

== ENCOUNTER 2025-08-07 14:25 | Outpatient (AMB) | payer OTHER, SELFPAY ==
[2025-08-07 14:32] VITALS: BP 140/76; PULSE 85; RESP 16; O2SAT 97; BMI 31.7
--- NOTE | 2025-08-07 14:32 | A.OFFVIS_ITS ---
Vital Signs 08/07/25 14:32 Height 6 ft Weight 234 lb BMI 31.7 BP 140/76 H Blood Pressure Location Rt brachial Position Sitting Respiration 16 Pulse 85 Pulse Source Pulse Oximeter Pulse Oximetry (%) 97 Oxygen Delivery Method Room Air Intake Visit Reasons: S/P (L) Dx Sacroiliac Joint Injection Pressing Machine Operator Required: No Accompanied by: Self / Same As Patient Allergies azithromycin Allergy (Verified 08/07/25 14:37) Nausea HPI Comments Details: Heath is back in my office after diagnostic left sacroiliac joint injection. He pain before the procedure at rest 4/10. After the procedure he had no pain whatsoever. He took very seriously my advice of performing most painful maneuvers and positioned which would usually aggravate his pain. He was lifting legs, doing lift exercises, doing dishes, walking, doing squat exercises. He would have pain 5-6 out of 10 doing all of those maneuvers and exercises. He reported pain from 0 to 2 out of 10 maximum. She reports that muscle spasm since his back also resolved after the procedure. He states today that his pain is very minimal as well. I believe we discovered his pain generators. I will invite him for therapeutic sacroiliac joint injection. I will see him 1 month after the procedure. Prior: diagnostic medial branch block which was performed under minimal sedation. He reports less than 50% pain improvement for the 1st 2 hours after the procedure which could be explained by systemic action of local anesthetic. Therefore the joints in the lower back is not his pain generators. He had therapeutic sacroiliac joint injection in the past under CT guidance however the images are not available for me and I can not make a conclusion how accurate the placement of the needle was. I will schedule him for diagnostic left sacroiliac joint injection. If this will not help the pain of the patient I would need to evaluate lumbar spine MRI of this patient. See as below. Prior: Complains on lower back pain and pain radiating into bilateral lower extremities on the posterior surface of the bilateral lower extremities and sensation of tingling and burning going down to his bilateral lower legs and top of his feet. He reports that he was under care of Dr. Demetrice Douglas. He received MRI of the lumbar spine. MRI demonstrated Modic type 1 changes in the L5-S1 area. He was physically examined and they found that the patient has sacroiliitis symptoms. He went for sacroiliac joint steroid injection on the left CT scan-guided. He denies any pain relief even though this procedure was done with 80 mg methylprednisolone injection. He reports more severe pain with standing and walking. He also reports severe pain with flexing forward and picking up subject from the ground. He also reports severe pain with heavy lifting. He had extensive physical therapy after the injury of 04/25/2024 which did not help his pain. A chiropractor tried to help his pain as with minimal effect. Massage therapy gave him mild improvement. He tried 10s unit and received minimal effect. Injections are as above. Denies past medical history healthy individual. Past surgical history significant for left ACL repair 1997. Right knee me diskectomy 2009. Right shoulder bone spur removal in 2015. Left biceps ligament repair in 2017. And C5-C6 fusion by Dr. Valadez in 2020. He denies smoking cigarettes admits drinking 2-3 beers a week admits drinking 2 cups of coffee a day and he denies recreational drugs. [facility] Medical History Family history of heart disease Habitual snoring Cervical spondylosis with radiculopathy Hypercholesteremia Back pain Social History Patient Tobacco Use Status: Never used Tobacco Review of Systems Const All systems reviewed & are unremarkable except as noted in HPI and below ENT Reports Normal hearing present Neuro Reports Normal hearing present, Denies Abnormal speech present, Denies confusion and Denies Sensory deficit (Neuro) Psych Denies confusion Physical Exam Vital Signs: Last Vital Signs Pulse 85 08/07/25 14:32 Resp 16 08/07/25 14:32 BP 140/76 H 08/07/25 14:32 Pulse Ox 97 08/07/25 14:32 Oxygen Delivery Method Room Air 08/07/25 14:32 BMI result Body Mass Index 31.7 Const General: no acute distress; No confusion Orientation/consciousness: patient oriented x3 and No confusion Eyes General: appearance normal, both eyes and all related structures Pupils: Equal, round and reactive pupils present EOM: EOMs intact bilaterally Neck Neck: Yes full ROM Chest Chest palpation & inspection: normal inspection of the chest Resp Effort & Inspection: normal respiratory effort, able to speak in complete sentences, normal respiratory pattern, no audible wheezes and no cough Cardio Jugular venous distension: no JVD GI Inspection: Yes normal to inspection Back/Spine/Pelvis Other: Flexing forward aggravates his pain. Loading test is equivocal. Joe test is positive on the left, Gaenslen test is positive on the left, yeoman's test is positive on the left, SLR is negative bilaterally. Lasegue test is negative bilaterally. Able to stand on bilateral tiptoes and bilateral heels without difficulty. Neuro General: patient oriented x3, gait normal and No confusion Cranial nerves: Yes CN's II-XII intact bilaterally, Yes Equal, round and reactive pupils present, Yes Normal hearing present and Yes Ability to bilaterally elevate shoulders present Speech: No Abnormal speech present Gait exam (Neuro): Normal gait present Motor exam (neuro): 5/5 motor strength present throughout Sensory Exam: No Sensory deficit (Neuro) Extrem General: No pedal edema Psych Speech and movement: Normal speech and movement present Affect: normal affect Attitude: cooperative Thought process: Normal thought process present Thought content: Normal thought content present Insight: Good insight present (Psych) Judgement: Good judgement present (Psych) Assessment & Plan Assessment & Plan (1) Vertebrogenic low back pain: Code(s): M54.51 - Vertebrogenic low back pain Category: Medical (2) Spondylosis of lumbar region without myelopathy or radiculopathy: Code(s): M47.816 - Spondylosis without myelopathy or radiculopathy, lumbar region Category: Medical (3) Chronic pain syndrome: Code(s): G89.4 - Chronic pain syndrome Category: Medical (4) Sacroiliitis: Code(s): M46.1 - Sacroiliitis, not elsewhere classified Category: Medical (5) Chronic left sacroiliac joint pain: Code(s): M53.3 - Sacrococcygeal disorders, not elsewhere classified; G89.29 - Other chronic pain Category: Medical Plan This patient showed me MRI on his telephone which demonstrated L5-S1 facet arthropathy, disc desiccation, Modic type changes. I need the images of this MRI to be available for me. On physical exam patient exhibits signs of sacroiliitis on the left. Left diagnostic sacroiliac joint injection resulted in very advanced more than 75% pain improvement after the procedure. I will schedule him now for therapeutic left sacroiliac joint injection. I will see him in this office 1 in a month after the procedure. Coding Level of Care Code Est Pt Level 3 (15507) Diagnoses Vertebrogenic low back pain M54.51 Spondylosis of lumbar region without myelopathy or radiculopathy M47.816 Chronic pain syndrome G89.4 Sacroiliitis M46.1 Chronic left sacroiliac joint pain M53.3; G89.29
--- OUTSIDE RECORDS SUMMARY | 2025-08-07 22:05 | XMS_ITS | Clinical Summary ---
Author Organization [facility] Prior to 01/25/[address] [place] [address] Care Team Providers Care Supervisor [employer] Name Role Phone Roge Delgado MD Primary Care Provider [phone] Social History Tobacco Use Types Packs/Day Years [...] age to complete this topic Care Teams Supervisor [employer] Relationship Specialty Start Date End Date Roge Delgado MD PCP - General Professor Of Communication 06/16/21
--- OUTSIDE RECORDS SUMMARY | 2025-08-07 22:05 | XMS_ITS | Encounter Summary ---
Author Organization [facility] Address [address] [place] [address] Phone Care Team Providers Care Etl Consultant Name Role Phone Unknown, Unknown Primary Care Provider Adair Deng MD Primary Care Provider [phone] Encounter Details Date Type Department Care Team (Late st Contact Info) Description 06/19/2023 Procedure Pass [address] [place] [address] Social History Tobacco Use Types Packs/Day Years [...] on filedocumented in this encounter Care Teams Etl Consultant Relationship Specialty Start Date End Date Unknown, Unknown, MD PCP - General 11/21/17 06/27/23 Adair Delgado MD [address] [place] [id number] PCP - General Internal Medicine 06/28/23 documented as of this encounter Additional Source Comments The information contained in this document represents components of the legal health record. It is not the complete legal health record.[facility]
--- OUTSIDE RECORDS SUMMARY | 2025-08-07 22:05 | XMS_ITS | Encounter Summary ---
Author Organization [facility] Address [address] [place] [address] [place] [address] Phone Care Team Providers Care Oven Stripper Name Role Phone Unknown, Unknown Primary Care Provider Adair Deng MD Primary Care Provider [phone] Encounter Details Date Type Department Care Team (Late st Contact Info) Description 10/11/2018 Procedure Pass [place] Admitting Dept - Virtual Department [address] [place] [address] Social History Tobacco Use Types Packs/Day Years [...] documented as of this encounter Care Teams Oven Stripper Relationship Specialty Start Date End Date Unknown, Unknown, PCP - General 11/21/17 06/27/23 Adair Delgado MD [address] [place] [phone] PCP - General Internal Medicine 06/28/23 documented as of this encounter Additional Source Comments The information contained in this document represents components of the legal health record. It is not the complete legal health record.[facility]
--- OUTSIDE RECORDS SUMMARY | 2025-08-07 22:05 | XMS_ITS | Encounter Summary ---
Author Organization [facility] Address [address] [place] [address] [place] [address] Phone Care Team Providers Care Log Clerk Name Role Phone Unknown, Unknown Primary Care Provider Adair Deng MD Primary Care Provider [phone] Encounter Details Date Type Department Care Team (Late st Contact Info) Description 06/27/2018 Procedure Pass [facility], [address] [address] Social History Tobacco Use Types Packs/Day Years [...] documented as of this encounter Care Teams Log Clerk Relationship Specialty Start Date End Date Unknown, Unknown, PCP - General 11/21/17 06/27/23 Adair Delgado MD [address] [place] [address] PCP - General Internal Medicine 06/28/23 documented as of this encounter Additional Source Comments The information contained in this document represents components of the legal health record. It is not the complete legal health record.[facility]
--- OUTSIDE RECORDS SUMMARY | 2025-08-07 22:05 | XMS_ITS | Clinical Summary ---
Author Organization [facility] [address] [facility] [address] Address [address] [place] [address] Phone Care Team Providers Care Agriculture Department Chair Name Role Phone Adair Delgado MD Primary Care Provider [phone] Allergies Active Allergy Reactions Criticality Noted Date [...] heart disease 02/03/2025 Sacroiliitis, not elsewhere classified Assessment & Plan (08/30/2024 3:21 PM EST): [...] be a 0/10. He had gone to [place] physical therapy in the past, called them [...] Type Department Care Team Description 07/04/2025 Telephone [facility] - [address] [place] [address] Vicki Cheney MD 06/25/2025 1:00 PM EDT Office Visit [facility] - [address] [place] [address] Vicki Cheney MD Chest pain, unspecified type [...] KNEE SURGERY; COMMENT: Left ACL '98 Foster Collier KNEE SURGERY 2012 PROCEDURE: HISTORICAL KNEE SURGERY; COMMENT: right meniscus repair SHOULDER SURGERY 07/2015 Right PROCEDURE: OR UNLISTED PROCEDURE SHOULDER; COMMENT: NEOS KNEE SURGERY [...] for your loved ones. For example, child development teacher or elderly care for an older [...] Orientation Straight 08/30/2024 3: 23 PM EST Last Filed Vital Signs Vital Sign Reading [...] GEMUSE QTc 421 ms GEMUSE P Wave [place] 64 degrees GEMUSE R [place] 51 degrees GEMUSE T [place] 56 degrees GEMUSE ECG Interpretation Normal sinus [...] LAB CHEMISTRY METHOD 01/22/2025 2:13 PM EDT [facility] Triglycerides 252(H) 0 - 150 mg/dL LAB CHEMISTRY METHOD 01/22/2025 2:13 PM EDT [facility] HDL 46 >=40 mg/dL LAB CHEMISTRY METHOD 01/22/2025 2:13 PM EDT [facility] LDL Calculated 157(H) 0 - 100 mg/dL LAB CHEMISTRY METHOD 01/22/2025 2:13 PM EDT [facility] VLDL Cholesterol Felipe 50.4 mg/dL LAB CHEMISTRY METHOD 01/22/2025 2:13 PM EDT [facility] Non HDL Chol. (LDL+VLDL) 207(H) <145 mg/dL LAB CHEMISTRY METHOD 01/22/2025 2:13 PM EDT [facility] Chol/HDL Ratio 5.5(H) 0.0 - 4.4 LAB CHEMISTRY METHOD 01/22/2025 2:13 PM EDT [facility] Blood Venous blood specimen / Unknown Venipuncture / Unknown 01/22/2025 8:56 AM EDT 01/22/2025 8:56 AM EDT Adair Delgado MD LAB BLOOD ORDERABLES Final Res ult [facility] [address] [place] [address], [place] [phone] * Hepatitis C antibody (08/23/2024 9:01 AM EST) [facility] Hepatitis C Antibody Negative Negative LAB CHEMISTRY METHOD 08/23/2024 1:05 PM EST [facility] Blood Venous blood specimen / Unknown Venipuncture / Unknown 08/23/2024 9:01 AM EST 08/23/2024 9:01 AM EST Donald HUERTA LAB BLOOD ORDERABLES Final Res ult [facility] [address] [place] [address], [place] [phone] from Last 3 Months or Most Recently Relevant to Health Maintenance Insurance [facility] Care Teams Agriculture Department Chair Relationship Specialty Start Date End Date Adair Delgado MD [address] [place] [id number] PCP - General Internal Medicine 05/20/21
--- OUTSIDE RECORDS SUMMARY | 2025-08-07 22:05 | XMS_ITS | Clinical Summary ---
Author Organization [facility] Address [address] [place] [address] Phone Care Team Providers Care Parts Sales Associate Name Role Phone Adair Delgado MD Primary Care Provider [phone] Allergies Active Allergy Reactions Criticality Noted Date [...] this topic Medical Devices Implanted Type Area Armature Balancer Device Identifier Shelf Expiration Date Model / Serial / Lot Chetek Suture 7x19.1mm Swivelock Tenodesis Bx/[id number] - [id number] Implanted:Qty: 1 on 10/11/2018 by Ciro Noonan DO at [facility] 09/27/2019 [id number] / / [id number] [facility] Member Subscriber Plan / Payer (Ef fective 2017-Present) Name:Heath Khan Relation to Subscriber:Self Name:HEATH KHAN Payer ID:Not on file Type:HMO Address: [place] [id number] [facility] [address] [place], [place] [address] [facility] [address] [place], [place] [address] Advance Directives For more information, please contact: [phone] (9AM - 5PM [facility], Monday-Monday) * Full Code (Presumed) (Latest Code Status on File) Date Activated Date Inactivated Comments 10/11/2018 7:40 AM 10/11/2018 3:48 PM Care Teams Parts Sales Associate Relationship Specialty Start Date End Date Adair Delgado MD [address] [place] [id number] PCP - General Internal Medicine 06/28/23 Additional Source Comments The information contained in this document represents components of the legal health record. It is not the complete legal health record.[facility]
--- OUTSIDE RECORDS SUMMARY | 2025-08-07 22:05 | XMS_ITS | Encounter Summary ---
Author Organization [facility] Address [address] [place] [address] [place] [address] Phone Care Team Providers Care Bagman/Woman Name Role Phone Unknown, Unknown Primary Care Provider Adair Deng MD Primary Care Provider [phone] Encounter Details Date Type Department Care Team (Late st Contact Info) Description 07/11/2018 Prep for Surgery [facility] Orthopedics & Sports Medicine [address] [place] [address] Ciro Noonan DO [address] [place] [address] Orthopedics & Sports Medicine, [facility] [place] [address] [email or web address] Social History Tobacco Use Types Packs/Day Years [...] documented as of this encounter Care Teams Bagman/Woman Relationship Specialty Start Date End Date Unknown, Unknown, MD PCP - General 11/21/17 06/27/23 Adair Delgado MD [address] [place] [address] PCP - General Internal Medicine 06/28/23 documented as of this encounter Additional Source Comments The information contained in this document represents components of the legal health record. It is not the complete legal health record.[facility]
--- OUTSIDE RECORDS SUMMARY | 2025-08-07 22:05 | XMS_ITS | Encounter Summary ---
Author Organization [facility] Address [address] [place] [address] [place] [address] Phone Care Team Providers Care Supervisor Telephone Answering Service Name Role Phone Unknown, Unknown Primary Care Provider Adair Deng MD Primary Care Provider [phone] Encounter Details Date Type Department Care Team (Late st Contact Info) Description 01/04/2018 Ancillary Orders [facility] Orthopedics & Sports Medicine [address] [place] [address] Ciro Noonan DO [address] [place] [address] Orthopedics & Sports Medicine, [facility] [place] [address] [email or web address] Social History Tobacco Use Types Packs/Day Years [...] documented as of this encounter Care Teams Supervisor Telephone Answering Service Relationship Specialty Start Date End Date Unknown, Unknown, PCP - General 11/21/17 06/27/23 Adair Delgado MD [address] [place] [phone] PCP - General Internal Medicine 06/28/23 documented as of this encounter Additional Source Comments The information contained in this document represents components of the legal health record. It is not the complete legal health record.[facility]
--- OUTSIDE RECORDS SUMMARY | 2025-08-07 22:05 | XMS_ITS | Encounter Summary ---
Author Organization [facility] Address [address] [place] [address] [place] [address] Phone Care Team Providers Care Proof Carrier Name Role Phone Unknown, Unknown Primary Care Provider Adair Deng MD Primary Care Provider [phone] Encounter Details Date Type Department Care Team (Late st Contact Info) Description 01/04/2018 Ancillary Orders [facility] - [address] [address] Ciro Noonan DO [address] [place] [address] Orthopedics & Sports Medicine, [place] [address] [email or web address] Left shoulder pain, unspecified chronicity Social History [...] documented as of this encounter Care Teams Proof Carrier Relationship Specialty Start Date End Date Unknown, Unknown, MD PCP - General 11/21/17 06/27/23 Adair Delgado MD [address] [place] [phone] PCP - General Internal Medicine 06/28/23 documented as of this encounter Additional Source Comments The information contained in this document represents components of the legal health record. It is not the complete legal health record.[facility]
== END 2025-08-07 15:01 | disposition home or self-care (01) ==
LOC: HO.PMC 14:25
PROVIDERS: PCP Pediatrics; Visit Provider Anesthesiology
DX: M54.51 Vertebrogenic low back pain (principal); M47.816 Spondylosis without myelopathy or radiculopathy, lumbar region; G89.4 Chronic pain syndrome; M46.1 Sacroiliitis, not elsewhere classified; M53.3 Sacrococcygeal disorders, not elsewhere classified; G89.29 Other chronic pain
CPT/HCPCS: 99213

== ENCOUNTER → 2025-08-07 14:25 | Outpatient (BNVA) | payer OTHER, SELFPAY | PROVIDERS: PCP Pediatrics; Visit Provider Anesthesiology | DX: M47.816 Spondylosis without myelopathy or radiculopathy, lumbar region (principal); G89.4 Chronic pain syndrome; M46.1 Sacroiliitis, not elsewhere classified; M53.3 Sacrococcygeal disorders, not elsewhere classified; M54.51 Vertebrogenic low back pain | CPT/HCPCS: 99212 ==